=== PATIENT | female | born 1965 | race American Indian/Alaskan Native ===

== ENCOUNTER 2018-02-04 15:05 | Emergency (ER) | payer SELFPAY ==
[2018-02-04 16:39] VITALS: BP 169/91
[2018-02-04] MEDS ORDERED: CLEOCIN PO ONE (17:57)
[2018-02-04] MEDS ORDERED: NORCO 5/325 PO ONE (17:57)
[2018-02-04] MEDS ORDERED: LIDOCAINE VISCOUS 2% MM ONE (18:00)
--- NOTE | 2018-02-04 18:03 | Emergency Department Report ---
ED ENT HPI - General Chief complaint: Dental/Oral Stated complaint: PAIN IN GUMS Time Seen by Provider: 02/04/18 17:50 Source: patient Mode of arrival: Ambulatory Limitations: No Limitations - History of Present Illness Initial comments: Pt reports that she has an infected tooth. Pain x a few days. No fevers or systemic complaints. MD complaint: tooth pain -: Gradual Location: tooth # (18) Severity: moderate Severity scale (0 -10): 7 Quality: stabbing Consistency: constant Improves with: none Worsens with: none Context- Dental: history of dental caries Associated Symptoms: toothache. denies: fever, gum swelling - Related Data Previous Rx's Medication Instructions Recorded Last Taken Type Clindamycin [Clindamycin CAP] 300 mg PO Q6HR #80 capsule 02/04/18 Unknown Rx Ibuprofen [Motrin] 800 mg PO Q8HR PRN #21 tablet 02/04/18 Unknown Rx Lidocaine Viscous 2% 15 ml MM Q6HR PRN #100 ml 02/04/18 Unknown Rx Allergies Allergy/AdvReac Type Severity Reaction Status Date / Time erythromycin base AdvReac Hives Verified 03/16/13 22:23 [Erythromycin Base] Penicillins AdvReac Shortness Verified 03/16/13 22:23 of Breath ED Dental HPI - General Chief complaint: Dental/Oral Stated complaint: PAIN IN GUMS Source: patient Mode of arrival: Ambulatory Limitations: No Limitations - Related Data Previous Rx's Medication Instructions Recorded Last Taken Type Clindamycin [Clindamycin CAP] 300 mg PO Q6HR #80 capsule 02/04/18 Unknown Rx Ibuprofen [Motrin] 800 mg PO Q8HR PRN #21 tablet 02/04/18 Unknown Rx Lidocaine Viscous 2% 15 ml MM Q6HR PRN #100 ml 02/04/18 Unknown Rx Allergies Allergy/AdvReac Type Severity Reaction Status Date / Time erythromycin base AdvReac Hives Verified 03/16/13 22:23 [Erythromycin Base] Penicillins AdvReac Shortness Verified 03/16/13 22:23 of Breath ED Review of Systems ROS: Stated complaint: PAIN IN GUMS Other details as noted in HPI Comment: All other systems reviewed and negative ENT: dental pain ED Past Medical Hx - Past Medical History Hx Hypertension: Yes Additional medical history: acid reflux, hyperlipidema, migraine - Surgical History Additional Surgical History: TUBAL LIGATION - Social History Smoking Status: Current Every Day Smoker Substance Use Type: None - Medications Home Medications: Home Medications Medication Instructions Recorded Confirmed Last Taken Type Clindamycin [Clindamycin CAP] 300 mg PO Q6HR #80 capsule 02/04/18 Unknown Rx Ibuprofen [Motrin] 800 mg PO Q8HR PRN #21 tablet 02/04/18 Unknown Rx Lidocaine Viscous 2% 15 ml MM Q6HR PRN #100 ml 02/04/18 Unknown Rx ED Physical Exam - General Limitations: No Limitations General appearance: alert, in no apparent distress - Head Head exam: Present: atraumatic, normocephalic - Eye Eye exam: Present: normal appearance - ENT ENT exam: Present: normal orophraynx, mucous membranes moist, other (TTP tooth 18; no facial or neck swelling. no trismus. ) - Neck Neck exam: Present: normal inspection - Respiratory Respiratory exam: Present: normal lung sounds bilaterally. Absent: respiratory distress - Cardiovascular Cardiovascular Exam: Present: regular rate, normal rhythm. Absent: systolic murmur, diastolic murmur, rubs, gallop - GI/Abdominal GI/Abdominal exam: Present: soft, normal bowel sounds - Extremities Exam Extremities exam: Present: normal inspection - Back Exam Back exam: Present: normal inspection - Neurological Exam Neurological exam: Present: alert, oriented X3 - Psychiatric Psychiatric exam: Present: normal affect, normal mood - Skin Skin exam: Present: warm, dry, intact, normal color. Absent: rash ED Course Vital Signs 02/04/18 16:35 Temperature 99.1 F Pulse Rate 72 Respiratory 16 Rate Blood Pressure 169/91 O2 Sat by Pulse 99 Oximetry ED Medical Decision Making - Medical Decision Making offered dental block for relief but declines. advised needs to f/u with dentist. given PO [place], cleocin, and viscous lidocaine here. - Differential Diagnosis abscess, dental pain Critical care attestation.: If time is entered above; I have spent that time in minutes in the direct care of this critically ill patient, excluding procedure time. ED Disposition Clinical Impression: Dentalgia Disposition: DC-01 TO HOME OR SELFCARE Is pt being admited?: No Condition: Good Instructions: Dental Caries (ED), Dental Abscess (ED) Additional Instructions: Follow up with dentist. Prescriptions: Clindamycin [Clindamycin CAP] 300 mg PO Q6HR #80 capsule Ibuprofen [Motrin] 800 mg PO Q8HR PRN #21 tablet PRN Reason: pain Lidocaine Viscous 2% 15 ml MM Q6HR PRN #100 ml PRN Reason: Pain , Severe (7-10) Time of Disposition: 18:01
== END 2018-02-04 18:34 | disposition home or self-care (01) ==
LOC: ED 15:05
DX: K08.89 Other specified disorders of teeth and supporting structures (principal); I10 Essential (primary) hypertension; E78.5 Hyperlipidemia, unspecified; G43.909 Migraine, unspecified, not intractable, without status migrainosus; F17.200 Nicotine dependence, unspecified, uncomplicated; Z98.51 Tubal ligation status; Z91.041 Radiographic dye allergy status; Z88.0 Allergy status to penicillin
CPT/HCPCS: 99282

== ENCOUNTER 2018-07-14 12:52 | Emergency (ER) | payer SELFPAY ==
--- NOTE | 2018-07-14 13:00 | Emergency Department Report ---
Blank Doc - Documentation Documentation: This is a 53-year-old female that presents with HTN. Was seen in a dentist and was told to come to the ED for pressure being too high. Denies hx of HTN. Denies any headache or any symptoms. This initial assessment/diagnostic orders/clinical plan/treatment(s) is/are subject to change based on patient's health status, clinical progression and re- assessment by fellow clinical providers in the ED. Further treatment and workup at subsequent clinical providers discretion. Patient/guardians urged not to elope from the ED as their condition may be serious if not clinically assessed and managed. Initial orders include: 1- Patient sent to [facility] for further evaluation and treatment 2- labs
[2018-07-14] MEDS ORDERED: CATAPRES PO ONE (13:15)
[2018-07-14 13:37] LABS: Basophils # (Auto) 0.1 K/mm3 (0.0-0.1); Basophils % (Auto) 0.6 % (0.0-1.8); Eosinophils % (Auto) 0.2 % (0.0-4.3); Hematocrit 37.7 % (30.3-42.9); Hemoglobin 12.4 gm/dl (10.1-14.3); Lymphocytes # (Auto) 1.8 K/mm3 (1.2-5.4); Lymphocytes % (Auto) 20.1 % (13.4-35.0); Mean Corpuscular HGB Conc 33 % (30-34); Mean Corpuscular Volume 81 fl (79-97); Monocytes # (Auto) 0.6 K/mm3 (0.0-0.8); Platelet Count 538 K/mm3 (140-440); Red Blood Count 4.65 M/mm3 (3.65-5.03); Red Cell Distribution Width 18.7 % (13.2-15.2)
[2018-07-14 13:57] LABS: Alanine Aminotransferase 10 units/L (7-56); Albumin 4.4 g/dL (3.9-5); BUN/Creatinine Ratio 8; Blood Urea Nitrogen 5 mg/dL (7-17); Calcium 8.9 mg/dL (8.4-10.2); Hemolysis Index 21
--- NOTE | 2018-07-14 14:28 | Cat Scan Report ---
CT HEAD WITHOUT CONTRAST: HISTORY: Dizziness. TECHNIQUE: Sequential 2.5mm CT images. COMPARISON: none. FINDINGS: Cerebral Parenchyma: Within normal limits. Cerebellum: Within normal limits. Brainstem: Within normal limits. Ventricles: Normal. Sella: Normal. Extra-axial spaces: Normal. Basal Cisterns: Normal. Intracranial Hemorrhage: None. Midline Shift: None. Calvarium: Normal. Sinuses: Normal. Mastoid Air Cells: Normal. Visualized Orbits: Normal. IMPRESSION: Cranial CT scan within normal limits.
[2018-07-14 15:03] VITALS: BP 189/102
--- NOTE | 2018-07-14 15:36 | Emergency Department Report ---
ED General Adult HPI - General Chief complaint: Dizziness Stated complaint: HBP 234/174/SENT BY DENTIST Time Seen by Provider: 07/14/18 12:59 Source: patient Mode of arrival: Ambulatory Limitations: No Limitations - History of Present Illness Initial comments: Patient is 53 years old female with no significant past medical history. Patient presented to the ER after she went to see dentist and found to have high blood pressure. In triage Patient found to have a blood pressure of 233/115. Patient stated that she's been having some headache and dizziness but denied any weakness, numbness or tingling sensation. Patient also denied any chest pain or shortness of breath. No fever or chills. Severity scale (0 -10): 0 - Related Data Previous Rx's Medication Instructions Recorded Last Taken Type Clindamycin [Clindamycin CAP] 300 mg PO Q6HR #80 capsule 02/04/18 Unknown Rx Ibuprofen [Motrin] 800 mg PO Q8HR PRN #21 tablet 02/04/18 Unknown Rx Lidocaine Viscous 2% 15 ml MM Q6HR PRN #100 ml 02/04/18 Unknown Rx amLODIPine [Norvasc] 5 mg PO DAILY #30 tab 07/14/18 Unknown Rx hydroCHLOROthiazide [HCTZ] 25 mg PO QDAY #30 tablet 07/14/18 Unknown Rx Allergies Allergy/AdvReac Type Severity Reaction Status Date / Time erythromycin base AdvReac Hives Verified 03/16/13 22:23 [Erythromycin Base] Penicillins AdvReac Shortness Verified 03/16/13 22:23 of Breath ED Review of Systems ROS: Stated complaint: HBP 234/174/SENT BY DENTIST Other details as noted in HPI Comment: All other systems reviewed and negative Constitutional: denies: chills, fever Respiratory: denies: cough, shortness of breath Cardiovascular: denies: chest pain, palpitations Gastrointestinal: denies: abdominal pain, nausea, vomiting Musculoskeletal: denies: back pain Neurological: denies: headache, weakness ED Past Medical Hx - Past Medical History Previous Medical History?: Yes Hx Hypertension: Yes Additional medical history: acid reflux, hyperlipidema, migraine - Surgical History Past Surgical History?: Yes Additional Surgical History: TUBAL LIGATION - Social History Smoking Status: Current Every Day Smoker Substance Use Type: None - Medications Home Medications: Home Medications Medication Instructions Recorded Confirmed Last Taken Type Clindamycin [Clindamycin CAP] 300 mg PO Q6HR #80 capsule 02/04/18 Unknown Rx Ibuprofen [Motrin] 800 mg PO Q8HR PRN #21 tablet 02/04/18 Unknown Rx Lidocaine Viscous 2% 15 ml MM Q6HR PRN #100 ml 02/04/18 Unknown Rx amLODIPine [Norvasc] 5 mg PO DAILY #30 tab 07/14/18 Unknown Rx hydroCHLOROthiazide [HCTZ] 25 mg PO QDAY #30 tablet 07/14/18 Unknown Rx ED Physical Exam - General Limitations: No Limitations General appearance: alert, in no apparent distress - Head Head exam: Present: atraumatic, normocephalic, normal inspection - Eye Eye exam: Present: normal appearance, PERRL - ENT ENT exam: Present: normal exam, normal orophraynx, mucous membranes moist - Neck Neck exam: Present: normal inspection, full ROM. Absent: tenderness, meningismus, lymphadenopathy, thyromegaly - Respiratory Respiratory exam: Present: normal lung sounds bilaterally. Absent: respiratory distress, wheezes, rales, rhonchi, stridor, chest wall tenderness, accessory muscle use, decreased breath sounds, prolonged expiratory - Cardiovascular Cardiovascular Exam: Present: regular rate, normal rhythm, normal heart sounds - GI/Abdominal GI/Abdominal exam: Present: soft. Absent: distended, tenderness, guarding, rebound, rigid, normal bowel sounds, organomegaly, mass, bruit, pulsatile mass, hernia - Extremities Exam Extremities exam: Present: normal inspection, full ROM, normal capillary refill - Back Exam Back exam: Present: normal inspection, full ROM. Absent: tenderness, CVA tenderness (R), CVA tenderness (L), muscle spasm, paraspinal tenderness, vertebral tenderness - Neurological Exam Neurological exam: Present: alert, oriented X3, CN II-XII intact, normal gait, reflexes normal - Skin Skin exam: Present: warm, intact, normal color ED Course Vital Signs 07/14/18 07/14/18 07/14/18 12:59 13:21 15:02 Temperature 98.9 F Pulse Rate 80 80 94 H Respiratory 16 16 Rate Blood Pressure 233/115 233/115 Blood Pressure 189/102 [Right] O2 Sat by Pulse 100 98 Oximetry ED Medical Decision Making - Lab Data Result diagrams: 07/14/18 13:26 03/18/19 13:26 - Radiology Data Radiology results: report reviewed CT brain is negative for acute finding. - Medical Decision Making Patient is 53 years old female with no significant past medical history. Zac shin presented to the ER after she went to see dentist and found to have high blood pressure. In triage Patient found to have a blood pressure of 233/115. Patient stated that she's been having some headache and dizziness but denied any weakness, numbness or tingling sensation. Patient also denied any chest pain or shortness of breath. No fever or chills. Patient stated that she is feeling much better. Her blood pressure improved significantly. I will discharge patient on Norvasc 5 mg and hydrochlorothiazide. I advised the patient to follow up with her primary care physician in the next 2-3 days and to return to the ER if her symptoms are not improved. Critical care attestation.: If time is entered above; I have spent that time in minutes in the direct care of this critically ill patient, excluding procedure time. ED Disposition Clinical Impression: Dizziness, Malignant hypertension Disposition: DC- TO HOME OR SELFCARE Is pt being admited?: No Condition: Stable Instructions: Hypertension (ED), Dizziness (ED) Prescriptions: hydroCHLOROthiazide [HCTZ] 25 mg PO QDAY #30 tablet amLODIPine [Norvasc] 5 mg PO DAILY #30 tab Referrals: [facility] [Provider Group] - 3-5 Days
== END 2018-07-14 15:46 | disposition home or self-care (01) ==
LOC: ED 12:52
DX: I10 Essential (primary) hypertension (principal); K21.9 Gastro-esophageal reflux disease without esophagitis; E78.5 Hyperlipidemia, unspecified; G43.909 Migraine, unspecified, not intractable, without status migrainosus; F17.200 Nicotine dependence, unspecified, uncomplicated; Z98.51 Tubal ligation status; Z88.0 Allergy status to penicillin; Z88.1 Allergy status to other antibiotic agents
CPT/HCPCS: 36415; 70450; 80053; 85025; 99284

== ENCOUNTER 2021-04-18 12:38 | Emergency (ER) | payer SELFPAY ==
--- NOTE | 2021-04-18 14:58 | XRay Report ---
CHEST 2 VIEWS INDICATION / CLINICAL INFORMATION: cough X 3 DAYS. COMPARISON: 04/10/2010 FINDINGS: SUPPORT DEVICES: None. HEART / MEDIASTINUM: No significant abnormality. LUNGS / PLEURA: No significant pulmonary or pleural abnormality. No pneumothorax. ADDITIONAL FINDINGS: No significant additional findings. IMPRESSION: 1. No acute findings. Signer Name: Santhosh Laguerre MD Signed: 04/18/2021 2:53 PM Workstation Name: [id number]
[2021-04-18] MEDS ORDERED: IPRATROPIUM 0.02% NEBU 2.5 ML IH ONE (15:00)
[2021-04-18] MEDS ORDERED: methylPREDNISolone Sod Succinate 125 MG/2 ML INJ IV ONE (15:00)
[2021-04-18] MEDS ORDERED: ALBUTEROL 2.5 MG/3 ML NEBU IH ONE (15:00)
--- NOTE | 2021-04-18 15:11 | Emergency Department Report ---
<ESTRADA ABDI - Last Filed: 04/18/21 16:58> ED General Adult HPI - General Chief complaint: Dyspnea/Respdistress Stated complaint: CAN'T BREATHE Time Seen by Provider: 04/18/21 14:23 Source: patient Mode of arrival: Ambulatory Limitations: No Limitations - History of Present Illness Initial comments: 55-year-old -[place] female patient presents with complaints of cough or shortness of breath for 2 days. She states she is coughing up clear sputum and denies any hemoptysis or chest pain. Patient denies past medical history and admits to being a chronic smoker. She also denies any loss of taste or smell, abdominal pain, vomiting/diarrhea, recent long travel, leg pain/swelling, history of DVT/PE/cancer, or hormone use. - Related Data Previous Rx's Medication Instructions Recorded Last Taken Type Clindamycin [Clindamycin CAP] 300 mg PO Q6HR #80 capsule 02/04/18 Unknown Rx Ibuprofen [Motrin] 800 mg PO Q8HR PRN #21 tablet 02/04/18 Unknown Rx Lidocaine Viscous 2% 15 ml MM Q6HR PRN #100 ml 02/04/18 Unknown Rx amLODIPine [Norvasc] 5 mg PO DAILY #30 tab 07/14/18 Unknown Rx hydroCHLOROthiazide [HCTZ] 25 mg PO QDAY #30 tablet 07/14/18 Unknown Rx Albuterol Mdi (or & Nicu Only) 2 puff IH QID PRN #8.5 gram 04/18/21 Unknown Rx [ProAir HFA Inhaler] Benzonatate [Tessalon Perles] 100 mg PO Q8HR #30 capsule 04/18/21 Unknown Rx levoFLOXacin [Levaquin TAB] 500 mg PO QDAY #7 tablet 04/18/21 Unknown Rx Allergies Allergy/AdvReac Type Severity Reaction Status Date / Time erythromycin base AdvReac Hives Verified 03/16/13 22:23 [Erythromycin Base] Penicillins AdvReac Shortness Verified 03/16/13 22:23 of Breath ED Review of Systems Constitutional: denies: chills, fever, malaise Respiratory: cough, shortness of breath. denies: orthopnea Cardiovascular: denies: chest pain Gastrointestinal: denies: abdominal pain, nausea, vomiting, diarrhea ED Past Medical Hx - Past Medical History Previous Medical History?: No Hx Hypertension: Yes Additional medical history: acid reflux, hyperlipidema, migraine - Surgical History Past Surgical History?: No Additional Surgical History: TUBAL LIGATION - Social History Smoking Status: Current Every Day Smoker Substance Use Type: None - Medications Home Medications: Home Medications Medication Instructions Recorded Confirmed Last Taken Type Clindamycin [Clindamycin CAP] 300 mg PO Q6HR #80 capsule 02/04/18 Unknown Rx Ibuprofen [Motrin] 800 mg PO Q8HR PRN #21 tablet 02/04/18 Unknown Rx Lidocaine Viscous 2% 15 ml MM Q6HR PRN #100 ml 02/04/18 Unknown Rx amLODIPine [Norvasc] 5 mg PO DAILY #30 tab 07/14/18 Unknown Rx hydroCHLOROthiazide [HCTZ] 25 mg PO QDAY #30 tablet 07/14/18 Unknown Rx Albuterol Mdi (or & Nicu Only) 2 puff IH QID PRN #8.5 gram 04/18/21 Unknown Rx [ProAir HFA Inhaler] Benzonatate [Tessalon Perles] 100 mg PO Q8HR #30 capsule 04/18/21 Unknown Rx levoFLOXacin [Levaquin TAB] 500 mg PO QDAY #7 tablet 04/18/21 Unknown Rx ED Physical Exam - General Limitations: No Limitations General appearance: alert, in no apparent distress, obese - Head Head exam: Present: atraumatic, normocephalic - Eye Eye exam: Present: normal appearance - Respiratory Respiratory exam: Present: wheezes (Diffuse), rhonchi (Diffuse). Absent: respiratory distress, accessory muscle use - Cardiovascular Cardiovascular Exam: Present: normal rhythm, tachycardia (Mild) - Neurological Exam Neurological exam: Present: alert, oriented X3, normal gait - Psychiatric Psychiatric exam: Present: normal affect, normal mood - Skin Skin exam: Present: warm, dry, intact, normal color. Absent: rash ED Medical Decision Making - Lab Data Result diagrams: 04/18/21 15:29 04/18/21 15:29 - Radiology Data Radiology results: report reviewed CHEST 2 VIEWS INDICATION / CLINICAL INFORMATION: cough X 3 DAYS. COMPARISON: 04/10/2010 FINDINGS: SUPPORT DEVICES: None. HEART / MEDIASTINUM: No significant abnormality. LUNGS / PLEURA: No significant pulmonary or pleural abnormality. No pneumothorax. ADDITIONAL FINDINGS: No significant additional findings. IMPRESSION: 1. No acute findings. - Medical Decision Making 35-year-old -[place] male patient presents with complaints of sudden o nset of low back pain starting last night. He denies any injuries and states he noted the pain when he awoke from his sleep. The pain is a 9/10 in severity and describes it as stabbing. Pain occurs with movement and with sitting. Patient states he has had intermittent low back pain, however this is the worst it has ever been. Pain does not radiate anywhere per patient. He also denies any hem atochezia/hematuria, loss of bladder/bowel control, saddle paresthesia/weakness in his legs, history of cancer/unexplained weight loss, IV drug use, or steroid use. He states he has not tried any medications for symptoms Patient denies receiving COVID-19 vaccination Patient dropping to 92% on room air with walking pulse ox after hour-long DuoNeb. Heart rate increased to 140, now 116 while at rest. Discussed patient with Dr. Lozano for possible admission, he reports patient does not meet adm ission criteria at this point. Discussed patient with Dr. Osborn-recommend CTA chest. PERC score = 2. Patient handed over to Dr. Osborn ED Disposition Clinical Impression: Cough, Lower resp. tract infection Disposition: HOME / SELF CARE / HOMELESS Condition: Stable Instructions: Cough, Adult, [id number] Additional Instructions: Return to the emergency department should you develop worsening symptoms, inability to tolerate food or liquids, high fever or any other concerns Prescriptions: levoFLOXacin [Levaquin TAB] 500 mg PO QDAY #7 tablet Albuterol Mdi (or & Nicu Only) [ProAir HFA Inhaler] 2 puff IH QID PRN #8.5 gram PRN Reason: Shortness Of Breath Benzonatate [Tessalon Perles] 100 mg PO Q8HR #30 capsule Referrals: PRIMARY CARE, [Primary Care Provider] - 3-5 Days [facility] [Provider Group] - 3-5 Days <YOANA OSBORN - Last Filed: 04/18/21 18:47> ED Review of Systems ROS: Stated complaint: CAN'T BREATHE Other details as noted in HPI ED Course Vital Signs 04/18/21 04/18/21 04/18/21 14:08 16:26 16:31 Temperature 99.5 F 98.8 F Pulse Rate 100 H 140 H 116 H Respiratory 16 20 Rate Blood Pressure 210/111 189/106 O2 Sat by Pulse 99 92 94 Oximetry 04/18/21 04/18/21 17:58 18:05 Temperature Pulse Rate 116 H Respiratory Rate Blood Pressure 189/106 O2 Sat by Pulse 95 Oximetry ED Medical Decision Making - Lab Data Result diagrams: 04/18/21 15:29 04/18/21 15:29 - Radiology Data Radiology results: report reviewed (CT chest), image reviewed (CT chest) [facility] [address] [place] [address] Cat Scan Report Signed Patient: MANUEL LEBLANC MR#: [id number] : 1965 Acct:[id number] Age/Sex: 55 / F ADM Date: 04/18/21 Loc: ED Attending Dr: Ordering Physician: ESTRADA ABDI Date of Service: 04/18/21 Procedure(s): CT angio chest Accession Number(s): [id number] cc: ESTRADA ABDI CT angio chest INDICATION / CLINICAL INFORMATION: hypoxia, SOB 100 ML OMNI 350 . TECHNIQUE: Axial CT images were obtained through the chest after injection of IV contrast. 3 plane MIP and/or 3D reconstructions were produced. All CT scans at this location are performed using CT dose reduction for ALARA by means of automated exposure control. COMPARISON: None available. FINDINGS: PULMONARY ARTERIES: No pulmonary emboli. HEART: Large quantity of multivessel coronary atherosclerotic calcification. MEDIASTINUM / DIANNA: No significant abnormality. LUNGS: A few centrilobular nodules seen within the posterior segment right upper lobe, image 21 and 22 of series 605. No pleural effusion. No pneumothorax. ADDITIONAL FINDINGS: None. UPPER ABDOMEN: No acute findings. SKELETAL STRUCTURES: No significant osseous abnormality. IMPRESSION: 1. No CT evidence for pulmonary embolism. 2. A few centrilobular nodules seen in the right upper lobe, could be infectious in etiology. Otherwise, no significant abnormality. 3. Large quantity of multivessel coronary atherosclerotic disease. Signer Name: Boby Duggan MD Signed: 04/18/2021 6:35 PM Workstation Name: [id number] Transcribed By: JONI Dictated By: Boby Duggan MD Electronically Authenticated By: Boby Duggan MD Signed Date/Time: 04/18/21 6916 DD/ 31 TD/TT: Print Cancel - Medical Decision Making After treatment patient now has 2-minute walking SPO2 of 95% on room air. Critical care attestation.: If time is entered above; I have spent that time in minutes in the direct care of this critically ill patient, excluding procedure time. ED Disposition Is pt being admited?: No Does the pt Need Aspirin: No Time of Disposition: 18:45
[2021-04-18] MEDS ORDERED: dexAMETHasone 20 MG/5 ML VIAL IM ONE (15:37)
[2021-04-18 15:49] LABS: Basophils # (Auto) 0.1 K/mm3 (0.0-0.1); Basophils % (Auto) 0.9 % (0.0-1.8); Eosinophils % (Auto) 0.9 % (0.0-4.3); Hematocrit 43.2 % (30.3-42.9); Hemoglobin 14.1 gm/dl (10.1-14.3); Lymphocytes # (Auto) 1.7 K/mm3 (1.2-5.4); Lymphocytes % (Auto) 29.5 % (13.4-35.0); Mean Corpuscular HGB Conc 33 % (30-34); Mean Corpuscular Volume 90 fl (79-97); Monocytes # (Auto) 0.8 K/mm3 (0.0-0.8); Monocytes % (Auto) 13.5 % (0.0-7.3); Platelet Count 391 K/mm3 (140-440); Red Blood Count 4.78 M/mm3 (3.65-5.03); Red Cell Distribution Width 14.7 % (13.2-15.2)
[2021-04-18 16:15] LABS: Alanine Aminotransferase 24 units/L (7-56); Albumin 4.7 g/dL (3.9-5); Blood Urea Nitrogen 7 mg/dL (7-17); Calcium 9.3 mg/dL (8.4-10.2); Hemolysis Index 9
[2021-04-18 16:26] LABS: BUN/Creatinine Ratio 12; Bilirubin,Direct < 0.2 mg/dL (0-0.2)
[2021-04-18] MEDS ORDERED: POTASSIUM CHLORIDE ER 20 MEQ TAB PO ONE (16:28)
[2021-04-18 16:33] VITALS: BP 189/106
[2021-04-18] MEDS ORDERED: cloNIDine 0.2 MG TAB PO ONE (17:19)
--- NOTE | 2021-04-18 18:39 | Cat Scan Report ---
CT angio chest INDICATION / CLINICAL INFORMATION: hypoxia, SOB 100 ML OMNI 350 . TECHNIQUE: Axial CT images were obtained through the chest after injection of IV contrast. 3 plane MIP and/or 3D reconstructions were produced. All CT scans at this location are performed using CT dose reduction f or ALARA by means of automated exposure control. COMPARISON: None available. FINDINGS: PULMONARY ARTERIES: No pulmonary emboli. HEART: Large quantity of multivessel coronary atherosclerotic calcification. MEDIASTINUM / DIANNA: No significant abnormality. LUNGS: A few centrilobular nodules seen within the posterior segment right upper lobe, image 21 and 2 2 of series 605. No pleural effusion. No pneumothorax. ADDITIONAL FINDINGS: None. UPPER ABDOMEN: No acute findings. SKELETAL STRUCTURES: No significant osseous abnormality. IMPRESSION: 1. No CT evidence for pulmonary embolism. 2. A few centrilobular nodules seen in the right upper lobe, could be infectious in etiology. Otherwi se, no significant abnormality. 3. Large quantity of multivessel coronary atherosclerotic disease. Signer Name: Boby Duggan MD Signed: 04/18/2021 6:35 PM Workstation Name: [id number]
== END 2021-04-18 19:02 | disposition home or self-care (01) ==
LOC: ED 12:38
DX: J06.9 Acute upper respiratory infection, unspecified (principal); F17.200 Nicotine dependence, unspecified, uncomplicated
CPT/HCPCS: 36415; 71046; 71275; 80048; 80076; 83880; 85025; 94644; 96372; 99284; J1100; Q9967

== ENCOUNTER 2021-08-10 15:34 | Emergency (ER) | payer SELFPAY ==
[2021-08-10 15:52] VITALS: BP 180/98
--- NOTE | 2021-08-10 18:27 | XRay Report ---
CHEST 2 VIEWS INDICATION / CLINICAL INFORMATION: sob. COMPARISON: 2 views of the chest from 04/18/2021. FINDINGS: SUPPORT DEVICES: None. HEART / MEDIASTINUM: No significant abnormality. LUNGS / PLEURA: No significant pulmonary abnormality. No significant pleural effusion. No pneumothora x. ADDITIONAL FINDINGS: No significant additional findings. IMPRESSION: 1. No acute abnormality of the chest. Signer Name: Pola Poole MD Signed: 08/10/2021 6:23 PM Workstation Name: [id number]
[2021-08-10] MEDS ORDERED: ALBUTEROL 2.5 MG/3 ML NEBU IH ONE (20:18)
[2021-08-10] MEDS ORDERED: dexAMETHasone 20 MG/5 ML VIAL IM ONE (20:18)
[2021-08-10] MEDS ORDERED: IBUPROFEN 800 MG TAB PO ONE (20:18)
--- NOTE | 2021-08-10 20:28 | Emergency Department Report ---
ED General Adult HPI - General Chief complaint: Upper Respiratory Infection Stated complaint: FEVER/COUGH/SOB Time Seen by Provider: 08/10/21 20:16 Source: patient Mode of arrival: Ambulatory Limitations: No Limitations - History of Present Illness Initial comments: Patient 56-year-old -[place] female who presents for cough and wheezing shortness of breath x1-1/2 weeks. Patient states cough is productive yellow- green thick, now nocturnal fever. Symptoms have been controlled with NyQuil [id number] and Tylenol. However productive cough has persisted. Patient denies smoking. Patient denies substance. There is history of bronchitis, HTN, and 30 pack year smoker, pt denies asthma, COPD no coronary artery disease, no other complaint. Patient arrived to ED today via POV patient is amatory there is no chest pain, no dizziness, lightheadedness. No nausea or vomiting. Diaphoresis.. - Related Data Previous Rx's Medication Instructions Recorded Last Taken Type Clindamycin [Clindamycin CAP] 300 mg PO Q6HR #80 capsule 02/04/18 Unknown Rx Ibuprofen [Motrin] 800 mg PO Q8HR PRN #21 tablet 02/04/18 Unknown Rx Lidocaine Viscous 2% 15 ml MM Q6HR PRN #100 ml 02/04/18 Unknown Rx amLODIPine [Norvasc] 5 mg PO DAILY #30 tab 07/14/18 Unknown Rx hydroCHLOROthiazide [HCTZ] 25 mg PO QDAY #30 tablet 07/14/18 Unknown Rx Albuterol Mdi (or & Nicu Only) 2 puff IH QID PRN #8.5 gram 04/18/21 Unknown Rx [ProAir HFA Inhaler] Benzonatate [Tessalon Perles] 100 mg PO Q8HR #30 capsule 04/18/21 Unknown Rx levoFLOXacin [Levaquin TAB] 500 mg PO QDAY #7 tablet 04/18/21 Unknown Rx ALBUTEROL NEB's [Proventil 0.083% 2.5 mg IH Q6H PRN #25 vial 08/10/21 Unknown Rx NEBS] Albuterol Mdi (or & Nicu Only) 2 puff IH QID PRN #8.5 gram 08/10/21 Unknown Rx [ProAir HFA Inhaler] dexAMETHasone [Decadron] 4 mg PO BID 5 Days #10 tablet 08/10/21 Unknown Rx guaiFENesin DM [Guaifenesin Dm 10 ml PO Q6H PRN #240 ml 08/10/21 Unknown Rx Syrup] levoFLOXacin [Levaquin TAB] 500 mg PO DAILY 5 Days #5 08/10/21 Unknown Rx Allergies Allergy/AdvReac Type Severity Reaction Status Date / Time erythromycin base AdvReac Hives Verified 03/16/13 22:23 [Erythromycin Base] Penicillins AdvReac Shortness Verified 03/16/13 22:23 of Breath ED Review of Systems ROS: Stated complaint: FEVER/COUGH/SOB Other details as noted in HPI Constitutional: fever Eyes: denies: eye pain, eye discharge, vision change ENT: denies: ear pain, throat pain Respiratory: cough, shortness of breath, wheezing Cardiovascular: denies: chest pain, palpitations Endocrine: no symptoms reported Gastrointestinal: denies: abdominal pain, nausea, vomiting, diarrhea Genitourinary: denies: urgency, dysuria, discharge Musculoskeletal: denies: back pain, joint swelling, arthralgia Skin: denies: rash, lesions Neurological: denies: headache, weakness, numbness, paresthesias, confusion, vertigo Psychiatric: as per HPI Hematological/Lymphatic: denies: easy bleeding, easy bruising ED Past Medical Hx - Past Medical History Previous Medical History?: Yes Hx Hypertension: Yes Additional medical history: acid reflux, hyperlipidema, migraine - Surgical History Past Surgical History?: Yes Additional Surgical History: TUBAL LIGATION - Social History Smoking Status: Current Every Day Smoker Substance Use Type: None - Medications Home Medications: Home Medications Medication Instructions Recorded Confirmed Last Taken Type Clindamycin [Clindamycin CAP] 300 mg PO Q6HR #80 capsule 02/04/18 Unknown Rx Ibuprofen [Motrin] 800 mg PO Q8HR PRN #21 tablet 02/04/18 Unknown Rx Lidocaine Viscous 2% 15 ml MM Q6HR PRN #100 ml 02/04/18 Unknown Rx amLODIPine [Norvasc] 5 mg PO DAILY #30 tab 07/14/18 Unknown Rx hydroCHLOROthiazide [HCTZ] 25 mg PO QDAY #30 tablet 07/14/18 Unknown Rx Albuterol Mdi (or & Nicu Only) 2 puff IH QID PRN #8.5 gram 04/18/21 Unknown Rx [ProAir HFA Inhaler] Benzonatate [Tessalon Perles] 100 mg PO Q8HR #30 capsule 04/18/21 Unknown Rx levoFLOXacin [Levaquin TAB] 500 mg PO QDAY #7 tablet 04/18/21 Unknown Rx ALBUTEROL NEB's [Proventil 0.083% 2.5 mg IH Q6H PRN #25 vial 08/10/21 Unknown Rx NEBS] Albuterol Mdi (or & Nicu Only) 2 puff IH QID PRN #8.5 gram 08/10/21 Unknown Rx [ProAir HFA Inhaler] dexAMETHasone [Decadron] 4 mg PO BID 5 Days #10 tablet 08/10/21 Unknown Rx guaiFENesin DM [Guaifenesin Dm 10 ml PO Q6H PRN #240 ml 08/10/21 Unknown Rx Syrup] levoFLOXacin [Levaquin TAB] 500 mg PO DAILY 5 Days #5 08/10/21 Unknown Rx ED Physical Exam - General Limitations: No Limitations General appearance: alert, in no apparent distress - Head Head exam: Present: normocephalic, normal inspection - Eye Eye exam: Present: normal appearance, PERRL, EOMI. Absent: conjunctival injection, nystagmus Pupils: Present: normal accommodation - ENT ENT exam: Present: normal orophraynx, mucous membranes moist, TM's normal bilaterally - Neck Neck exam: Present: normal inspection, full ROM. Absent: tenderness, lymphadenopathy, thyromegaly - Respiratory Respiratory exam: Present: normal lung sounds bilaterally, wheezes (Mild expiratory wheezes bilateral upper lobes). Absent: respiratory distress, rales, rhonchi, stridor, chest wall tenderness - Cardiovascular Cardiovascular Exam: Present: regular rate, normal rhythm, normal heart sounds. Absent: systolic murmur, diastolic murmur, rubs, gallop - GI/Abdominal GI/Abdominal exam: Present: soft, normal bowel sounds. Absent: distended, tenderness - Rectal Rectal exam: Present: deferred - Extremities Exam Extremities exam: Present: normal inspection, full ROM, normal capillary refill. Absent: tenderness, pedal edema - Back Exam Back exam: Present: normal inspection, full ROM. Absent: CVA tenderness (R), CVA tenderness (L) - Neurological Exam Neurological exam: Present: alert, oriented X3, CN II-XII intact, normal gait - Expanded Neurological Exam Expanded Patient oriented to: Present: person, place, time Speech: Present: fluid speech Best Eye Response (Talya): (4) open spontaneously Best Motor Response ([place]): (6) obeys commands Best Verbal Response ([place]): (5) oriented Talya Total: 15 - Psychiatric Psychiatric exam: Present: normal affect, normal mood - Skin Skin exam: Present: warm, dry, intact, normal color. Absent: rash ED Course Vital Signs 08/10/21 08/10/21 15:41 15:47 Temperature 99.4 F 98.0 F Pulse Rate 103 H 95 H Respiratory 15 18 Rate Blood Pressure 180/98 O2 Sat by Pulse 94 92 Oximetry ED Medical Decision Making - Radiology Data Radiology results: report reviewed, image reviewed CHEST 2 VIEWS INDICATION / CLINICAL INFORMATION: sob. COMPARISON: 2 views of the chest from 04/18/2021. FINDINGS: SUPPORT DEVICES: None. HEART / MEDIASTINUM: No significant abnormality. LUNGS / PLEURA: No significant pulmonary abnormality. No significant pleural effusion. No pneumothorax. ADDITIONAL FINDINGS: No significant additional findings. IMPRESSION: 1. No acute abnormality of the chest. Signer Name: Pola Poole MD Signed: 08/10/2021 6:23 PM Workstation Name: [id number] Transcribed By: [place] Dictated By: Pola Poole MD Electronically Authenticated By: Pola Poole MD Signed Date/Time: 08/10/211822 DD/ 21 TD/TT: - Medical Decision Making Chest x-ray normal no infiltrates no opacities, repeat vital signs are normal. Patient has ambulated from room to the restroom to back to room without increase shortness of breath or wheezing patient requested to be DC'd and go home with medications. Patient has nebulizer at home, given follow-up vital signs and exam this is a reasonable request. Patient will be DC'd to home at this time in stable condition. Patient will be given prescriptions. Patient will follow with primary care doctor in 2 to 3 days. Patient will return to emergency department should symptoms worsen. Patient is currently alert oriented x3 patient is amatory with steady gait there is no chest pain there is no shortness of breath there is no active wheezing. Patient appears well well-hydrated well- nourished and nontoxic. Home via POV and family member. V/S hr: 87, bp: 168/88, Resp: 16, Temp: 98.4 , O2 sat 97% r/a Critical care attestation.: If time is entered above; I have spent that time in minutes in the direct care of this critically ill patient, excluding procedure time. ED Disposition Clinical Impression: Bronchitis URI (upper respiratory infection) Qualifiers: URI type: unspecified URI Qualified Code(s): J06.9 - Acute upper respiratory infection, unspecified Disposition: 01 HOME / SELF CARE / HOMELESS Is pt being admited?: No Does the pt Need Aspirin: No Condition: Stable Instructions: Chronic Bronchitis (ED), Viral Respiratory Infection, How to Use a Metered Dose Inhaler Additional Instructions: Follow-up with your doctor in 2 to 3 days. Take medications as prescribed. Return to emergency department should symptoms worsen. Prescriptions: dexAMETHasone [Decadron] 4 mg PO BID 5 Days #10 tablet guaiFENesin DM [Guaifenesin Dm Syrup] 10 ml PO Q6H PRN #240 ml PRN Reason: Cough levoFLOXacin [Levaquin TAB] 500 mg PO DAILY 5 Days #5 Albuterol Mdi (or & Nicu Only) [ProAir HFA Inhaler] 2 puff IH QID PRN #8.5 gram PRN Reason: Shortness Of Breath ALBUTEROL NEB's [Proventil 0.083% NEBS] 2.5 mg IH Q6H PRN #25 vial PRN Reason: wheezing SOB Referrals: CAROLYN QUISPE MD [Primary Care Provider] - 3-5 Days KARMA CALDERÓN MD [Staff Physician] - 3-5 Days Forms: Work/School Release Form(ED) Time of Disposition: 21:06
== END 2021-08-10 21:27 | disposition home or self-care (01) ==
LOC: ED 15:34
DX: J06.9 Acute upper respiratory infection, unspecified (principal); J40 Bronchitis, not specified as acute or chronic; I10 Essential (primary) hypertension; G43.909 Migraine, unspecified, not intractable, without status migrainosus; F17.200 Nicotine dependence, unspecified, uncomplicated; Z98.51 Tubal ligation status; Z88.1 Allergy status to other antibiotic agents; Z88.0 Allergy status to penicillin; Z79.899 Other long term (current) drug therapy
CPT/HCPCS: 71046; 99283

== ENCOUNTER 2021-08-27 01:08 | Inpatient (IN) | payer SELFPAY ==
[2021-08-27] MEDS ORDERED: IPRATROPIUM 0.02% NEBU 2.5 ML IH ONE ×2 (01:25→02:51)
[2021-08-27] MEDS ORDERED: ASPIRIN 325 MG TAB PO ONE (01:25)
[2021-08-27] MEDS ORDERED: ALBUTEROL 2.5 MG/3 ML NEBU IH ONE ×2 (01:28→02:51)
[2021-08-27] MEDS ORDERED: methylPREDNISolone Sod Succinate 125 MG/2 ML INJ IV ONE (01:54)
[2021-08-27 01:56] LABS: Basophils # (Auto) 0.1 K/mm3 (0.0-0.1); Basophils % (Auto) 0.5 % (0.0-1.8); Eosinophils # (Auto) 0.2 K/mm3 (0.0-0.4); Eosinophils % (Auto) 1.4 % (0.0-4.3); Hemoglobin 12.6 gm/dl (10.1-14.3); Lymphocytes # (Auto) 2.5 K/mm3 (1.2-5.4); Lymphocytes % (Auto) 21.2 % (13.4-35.0); Mean Corpuscular HGB Conc 32 % (30-34); Mean Corpuscular Volume 89 fl (79-97); Monocytes # (Auto) 0.9 K/mm3 (0.0-0.8); Monocytes % (Auto) 7.2 % (0.0-7.3); Platelet Count 473 K/mm3 (140-440); Red Blood Count 4.37 M/mm3 (3.65-5.03); Red Cell Distribution Width 14.4 % (13.2-15.2)
--- NOTE | 2021-08-27 01:58 | Emergency Department Report ---
HPI - General Chief Complaint: Dyspnea/Respdistress Time Seen by Provider: 08/27/21 01:38 - HPI HPI: Room 4 The patient is a 56-year-old female present with a chief complaint of shortness of breath. Patient states she has had a cough productive of yellow sputum for the past 2 to 3 days as well as subjective fever. Patient states she developed shortness of breath today prompting her to come back to the emergency department. Patient denies rhinorrhea nausea vomiting. Patient denies any known sick contacts and states she has not been vaccinated against COVID. Patient was placed immediately on BiPAP upon arrival to an ED room ED Past Medical Hx - Past Medical History Previous Medical History?: Yes Hx Hypertension: Yes Additional medical history: acid reflux, hyperlipidema, migraine, bronchitis - Surgical History Past Surgical History?: Yes Additional Surgical History: TUBAL LIGATION - Family History Family history: no significant - Social History Smoking Status: Current Some Day Smoker Substance Use Type: None (Denies illicit drug use) - Medications Home Medications: Home Medications Medication Instructions Recorded Confirmed Last Taken Type Ibuprofen [Motrin] 800 mg PO Q8HR PRN #21 tablet 02/04/18 08/27/21 Unknown Rx amLODIPine [Norvasc] 5 mg PO DAILY #30 tab 07/14/18 08/27/21 1 Day Ago Rx ~08/26/21 hydroCHLOROthiazide [HCTZ] 25 mg PO QDAY #30 tablet 07/14/18 08/27/21 Unknown Rx Albuterol Mdi (or & Nicu Only) 2 puff IH QID PRN #8.5 gram 04/18/21 08/27/21 1 Day Ago Rx [ProAir HFA Inhaler] ~08/26/21 ALBUTEROL NEB's [Proventil 0.083% 2.5 mg IH Q6H PRN #25 vial 08/10/21 08/27/21 Unknown Rx NEBS] Albuterol Mdi (or & Nicu Only) 2 puff IH QID PRN #8.5 gram 08/10/21 08/27/21 1 Day Ago Rx [ProAir HFA Inhaler] ~08/26/21 ED Review of Systems ROS: Stated complaint: CHEST PAIN/SHAISTA Other details as noted in HPI Constitutional: fever (Subjective) Eyes: denies: eye pain ENT: denies: congestion Respiratory: cough, shortness of breath Cardiovascular: denies: chest pain Endocrine: no symptoms reported Gastrointestinal: denies: nausea, vomiting Genitourinary: denies: dysuria Musculoskeletal: denies: back pain Neurological: denies: headache Physical Exam - Physical Exam Vital Signs: Vital Signs 08/27/21 08/27/21 01:16 01:45 Temperature 98.2 F Pulse Rate 103 H 978 H Respiratory 26 H 34 H Rate Blood Pressure 180/100 213/107 O2 Sat by Pulse 95 100 Oximetry Physical Exam: GENERAL: The patient is well-developed well-nourished female sitting on stret dawit with BiPAP in place showing slightly increased work of breathing. [] HEENT: Normocephalic. Atraumatic. Extraocular motions are intact. Patient has moist mucous membranes. NECK: Supple. Trachea midline CHEST/LUNGS: Tight wheezing diffusely. Increased work of breathing HEART/CARDIOVASCULAR: Regular. There is tachycardia. There is no gallop rub or murmur. ABDOMEN: Abdomen is soft, nontender. Patient has normal bowel sounds. There is no abdominal distention. SKIN: There is no rash. There is no edema. There is no diaphoresis. NEURO: The patient is awake, alert, and oriented. The patient is cooperative. The patient has no focal neurologic deficits. GCS 15 MUSCULOSKELETAL: There is no evidence of acute injury. ED Course Vital Signs 08/27/21 08/27/21 01:16 01:45 Temperature 98.2 F Pulse Rate 103 H 978 H Respiratory 26 H 34 H Rate Blood Pressure 180/100 213/107 O2 Sat by Pulse 95 100 Oximetry ED Medical Decision Making - Lab Data Result diagrams: 08/27/21 01:39 08/27/21 01:39 Laboratory Tests 08/27/21 08/27/21 08/27/21 01:39 01:39 02:42 WBC 12.0 H RBC 4.37 Hgb 12.6 Hct 39.0 MCV 89 MCH 29 MCHC 32 RDW 14.4 Plt Count 473 H Lymph % (Auto) 21.2 [place] % (Auto) 7.2 Eos % (Auto) 1.4 Baso % (Auto) 0.5 Lymph # (Auto) 2.5 [place] # (Auto) 0.9 H Eos # (Auto) 0.2 Baso # (Auto) 0.1 Seg Neutrophils % 69.7 Seg Neutrophils # 8.4 H Sodium 143 Potassium 3.9 Chloride 103.2 Carbon Dioxide 26 Anion Gap 18 BUN 12 Creatinine 0.7 Estimated GFR > 60 BUN/Creatinine Ratio 17 Glucose 105 H Lactic Acid 1.90 Calcium 9.2 Total Bilirubin < 0.20 AST 18 ALT 17 Alkaline Phosphatase 72 Troponin T < 0.010 NT-Pro-B Natriuret Pep Total Protein 7.5 Albumin 4.7 Albumin/Globulin Ratio 1.7 Urine Color Urine Turbidity Urine pH Ur Specific [place] Urine Protein Urine Glucose (UA) Urine Ketones Urine Blood Urine Nitrite Urine Bilirubin Urine Urobilinogen Ur Leukocyte Esterase Urine WBC (Auto) Urine RBC (Auto) U Epithel Cells (Auto) Urine Bacteria (Auto) 08/27/21 08/27/21 08/27/21 02:42 04:38 Unknown WBC RBC Hgb Hct MCV MCH MCHC RDW Plt Count Lymph % (Auto) [place] % (Auto) Eos % (Auto) Baso % (Auto) Lymph # (Auto) [place] # (Auto) Eos # (Auto) Baso # (Auto) Seg Neutrophils % Seg Neutrophils # Sodium Potassium Chloride Carbon Dioxide Anion Gap BUN Creatinine Estimated GFR BUN/Creatinine Ratio Glucose Lactic Acid Calcium Total Bilirubin AST ALT Alkaline Phosphatase Troponin T < 0.010 NT-Pro-B Natriuret Pep 85.98 Total Protein Albumin Albumin/Globulin Ratio Urine Color Yellow Urine Turbidity Clear Urine pH 6.0 Ur Specific [place] 1.012 Urine Protein 100 mg/dl Urine Glucose (UA) Neg Urine Ketones Neg Urine Blood Neg Urine Nitrite Neg Urine Bilirubin Neg Urine Urobilinogen < 2.0 Ur Leukocyte Esterase Mod Urine WBC (Auto) 36.0 H Urine RBC (Auto) 6.0 U Epithel Cells (Auto) 13.0 Urine Bacteria (Auto) 1+ - Radiology Data Radiology results: report reviewed (Chest x-ray), image reviewed (Chest x-ray) interpreted by me: Chest x-ray-no definite focal infiltrates, no pneumothorax [facility] [address] [place] [address] XRay Report Signed Patient: MANUEL LEBLANC MR#: [id number] : 1965 Acct:[id number] Age/Sex: 56 / F ADM Date: 08/27/21 Loc: ED Attending Dr: Ordering Physician: YOANA OSBORN MD Date of Service: 08/27/21 Procedure(s): XR chest 1V ap Accession Number(s): [id number] cc: YOANA OSBORN MD Fluoro Time In Minutes: CHEST 1 VIEW INDICATION / CLINICAL INFORMATION: Cough, shortness of breath. COMPARISON: None available. FINDINGS: Heart size appears within normal limits. Mediastinal contour demonstrates no significant abnormality. Pulmonary vasculature appears within normal limits. Lungs are clear for technique utilized. Bones and soft tissues demonstrate no significant abnormalities. IMPRESSION: 1. No active cardiopulmonary disease. Signer Name: Monika Vee II, MD Signed: 08/27/2021 2:18 AM Workstation Name: [facility])- [id number] Transcribed By: SERENA Dictated By: MONIKA VEE II, MD Electronically Authenticated By: MONIKA VEE II, MD Signed Date/Time: 08/27/21217 DD/ 7 TD/TT: - Differential Diagnosis Pneumonia, reactive airway disease, bronchitis, CHF, COPD Critical care attestation.: If time is entered above; I have spent that time in minutes in the direct care of this critically ill patient, excluding procedure time. ED Disposition Clinical Impression: Shortness of breath, Wheezing, Uncontrolled hypertension, UTI (urinary tract infection) Disposition: ADMITTED INPATIENT Is pt being admited?: Yes Does the pt Need Aspirin: No Condition: Fair Instructions: Hypertension (ED) Time of Disposition: 05:26 (Care transferred to hospitalist (Dr Perdomo))
--- NOTE | 2021-08-27 02:23 | XRay Report ---
CHEST 1 VIEW INDICATION / CLINICAL INFORMATION: Cough, shortness of breath. COMPARISON: None available. FINDINGS: Heart size appears within normal limits. Mediastinal contour demonstrates no significant abnormality. Pulmonary vasculature appears within normal limits. Lungs are clear for technique utilized. Bones an d soft tissues demonstrate no significant abnormalities. IMPRESSION: 1. No active cardiopulmonary disease. Signer Name: Mata Fine II, MD Signed: 08/27/2021 2:18 AM Workstation Name: [id number]
[2021-08-27 02:38] LABS: Alanine Aminotransferase 17 units/L (7-56); Albumin 4.7 g/dL (3.9-5); Blood Urea Nitrogen 12 mg/dL (7-17); Calcium 9.2 mg/dL (8.4-10.2); Hemolysis Index 17
[2021-08-27 02:50] LABS: BUN/Creatinine Ratio 17
[2021-08-27] MEDS ORDERED: cloNIDine 0.2 MG TAB PO ONE (03:13)
[2021-08-27 03:20] LABS: Bacteria,Urine 1+ /HPF (Negative); Bilirubin,Urine NEG (Negative); Blood,Urine NEG (Negative); Color,Urine Yellow (Yellow); Urobilinogen,Urine < 2.0 mg/dL (<2.0)
[2021-08-27] MEDS ORDERED: KETOROLAC 30 MG/1 ML INJ IV ONE (10:16)
--- NOTE | 2021-08-27 10:24 | History and Physical Report ---
History of Present Illness Date of examination: 08/27/21 Date of admission: 08/27/2021 Chief complaint: Severe shortness of breath since last night History of present illness: The patient is a 56-year-old female present with a chief complaint of shortness of breath. Patient states she has had a cough productive of yellow sputum for the past 2 to 3 days as well as subjective fever. Patient states she developed shortness of breath since last night prompting her to come back to the emergency department. Patient denies rhinorrhea nausea vomiting. Patient denies any known sick contacts and states she has not been vaccinated against COVID. Patient has oxygen saturations of 85% on room air at the time of arrival to the emergency room. Patient was placed immediately on BiPAP upon arrival to an ED room - Past Medical History Previous Medical History?: Yes --Hypertension: Yes Additional medical history: acid reflux, hyperlipidema, migraine, bronchitis - Surgical History Past Surgical History?: Yes Additional Surgical History: TUBAL LIGATION - Family History Family history: no significant - Social History Smoking Status: Current Some Day Smoker Substance Use Type: None (Denies illicit drug use) - Medications Home Medications: Home Medications Medication Instructions Recorded Confirmed Last Taken Type Ibuprofen [Motrin] 800 mg PO Q8HR PRN #21 tablet 02/04/18 08/27/21 Unknown Rx amLODIPine [Norvasc] 5 mg PO DAILY #30 tab 07/14/18 08/27/21 1 Day Ago Rx ~08/26/21 hydroCHLOROthiazide [HCTZ] 25 mg PO QDAY #30 tablet 07/14/18 08/27/21 Unknown Rx Albuterol Mdi (or & Nicu Only) 2 puff IH QID PRN #8.5 gram 04/18/21 08/27/21 1 Day Ago Rx [ProAir HFA Inhaler] ~08/26/21 ALBUTEROL NEB's [Proventil 0.083% 2.5 mg IH Q6H PRN #25 vial 08/10/21 08/27/21 Unknown Rx NEBS] Albuterol Mdi (or & Nicu Only) 2 puff IH QID PRN #8.5 gram 08/10/21 08/27/21 1 Day Ago Rx [ProAir HFA Inhaler] ~08/26/21 Review of Systems ROS: Stated complaint: CHEST PAIN/SHAISTA Other details as noted in HPI Constitutional: fever (Subjective) Eyes: denies: eye pain ENT: denies: congestion Respiratory: cough, shortness of breath Cardiovascular: denies: chest pain Endocrine: no symptoms reported Gastrointestinal: denies: nausea, vomiting Genitourinary: denies: dysuria Musculoskeletal: denies: back pain Neurological: denies: headache Medications and Allergies Allergies Allergy/AdvReac Type Severity Reaction Status Date / Time erythromycin base AdvReac Hives Verified 08/27/21 01:24 [Erythromycin Base] Penicillins AdvReac Shortness Verified 08/27/21 01:24 of Breath Home Medications Medication Instructions Recorded Confirmed Last Taken Type Ibuprofen [Motrin] 800 mg PO Q8HR PRN #21 tablet 02/04/18 08/27/21 Unknown Rx amLODIPine [Norvasc] 5 mg PO DAILY #30 tab 07/14/18 08/27/21 1 Day Ago Rx ~08/26/21 hydroCHLOROthiazide [HCTZ] 25 mg PO QDAY #30 tablet 07/14/18 08/27/21 Unknown Rx Albuterol Mdi (or & Nicu Only) 2 puff IH QID PRN #8.5 gram 04/18/21 08/27/21 1 Day Ago Rx [ProAir HFA Inhaler] ~08/26/21 ALBUTEROL NEB's [Proventil 0.083% 2.5 mg IH Q6H PRN #25 vial 08/10/21 08/27/21 Unknown Rx NEBS] Albuterol Mdi (or & Nicu Only) 2 puff IH QID PRN #8.5 gram 08/10/21 08/27/21 1 Day Ago Rx [ProAir HFA Inhaler] ~08/26/21 Exam - Constitutional Vitals: Temp Pulse Resp BP Pulse Ox 98.1 F 81 16 128/74 99 08/27/21 10:12 08/27/21 10:12 08/27/21 10:12 08/27/21 10:12 08/27/21 10:12 General appearance: Present: severe distress, well-nourished - EENT Eyes: Present: PERRL ENT: hearing intact, clear oral mucosa - Neck Neck: Present: supple, normal ROM - Respiratory Respiratory effort: normal Respiratory: bilateral: diminished, rhonchi, wheezing - Cardiovascular Heart rate: 98 Rhythm: regular Heart Sounds: Present: S1 & S2. Absent: rub, click - Extremities Extremities: pulses symmetrical, No edema Peripheral Pulses: within normal limits - Abdominal General gastrointestinal: Present: soft, non-tender, non-distended, normal bowel sounds Female genitourinary: Present: normal - Integumentary Integumentary: Present: clear, warm, dry - Musculoskeletal Musculoskeletal: gait normal, strength equal bilaterally - Psychiatric Psychiatric: appropriate mood/affect, intact judgment & insight - Neurologic Neurologic: CNII-XII intact, moves all extremities HEART Score - HEART Score Troponin: Troponin T < 0.010 ng/mL (0.00-0.029) 08/27/21 07:08 Results - Labs CBC & Chem 7: 08/28/21 05:21 08/27/21 01:39 Labs: Laboratory Last Values WBC 12.0 K/mm3 (4.5-11.0) H 08/27/21 01:39 RBC 4.37 M/mm3 (3.65-5.03) 08/27/21 01:39 Hgb 12.6 gm/dl (10.1-14.3) 08/27/21 01:39 Hct 39.0 % (30.3-42.9) 08/27/21 01:39 MCV 89 fl (79-97) 08/27/21 01:39 MCH 29 pg (28-32) 08/27/21 01:39 MCHC 32 % (30-34) 08/27/21 01:39 RDW 14.4 % (13.2-15.2) 08/27/21 01:39 Plt Count 473 K/mm3 (140-440) H 08/27/21 01:39 Lymph % (Auto) 21.2 % (13.4-35.0) 08/27/21 01:39 [place] % (Auto) 7.2 % (0.0-7.3) 08/27/21 01:39 Eos % (Auto) 1.4 % (0.0-4.3) 08/27/21 01:39 Baso % (Auto) 0.5 % (0.0-1.8) 08/27/21 01:39 Lymph # (Auto) 2.5 K/mm3 (1.2-5.4) 08/27/21 01:39 [place] # (Auto) 0.9 K/mm3 (0.0-0.8) H 08/27/21 01:39 Eos # (Auto) 0.2 K/mm3 (0.0-0.4) 08/27/21 01:39 Baso # (Auto) 0.1 K/mm3 (0.0-0.1) 08/27/21 01:39 Seg Neutrophils % 69.7 % (40.0-70.0) 08/27/21 01:39 Seg Neutrophils # 8.4 K/mm3 (1.8-7.7) H 08/27/21 01:39 Sodium 143 mmol/L (137-145) 08/27/21 01:39 Potassium 3.9 mmol/L (3.6-5.0) 08/27/21 01:39 Chloride 103.2 mmol/L (98-107) 08/27/21 01:39 Carbon Dioxide 26 mmol/L (22-30) 08/27/21 01:39 Anion Gap 18 mmol/L 08/27/21 01:39 BUN 12 mg/dL (7-17) 08/27/21 01:39 Creatinine 0.7 mg/dL (0.6-1.2) 08/27/21 01:39 Estimated GFR > 60 ml/min 08/27/21 01:39 BUN/Creatinine Ratio 17 % 08/27/21 01:39 Glucose 105 mg/dL (65-100) H 08/27/21 01:39 Lactic Acid 1.90 mmol/L (0.7-2.0) 08/27/21 02:42 Calcium 9.2 mg/dL (8.4-10.2) 08/27/21 01:39 Total Bilirubin < 0.20 mg/dL (0.1-1.2) 08/27/21 01:39 AST 18 units/L (5-40) 08/27/21 01:39 ALT 17 units/L (7-56) 08/27/21 01:39 Alkaline Phosphatase 72 units/L (35-129) 08/27/21 01:39 Troponin T < 0.010 ng/mL (0.00-0.029) 08/27/21 07:08 NT-Pro-B Natriuret Pep 85.98 pg/mL (0-900) 08/27/21 02:42 Total Protein 7.5 g/dL (6.3-8.2) 08/27/21 01:39 Albumin 4.7 g/dL (3.9-5) 08/27/21 01:39 Albumin/Globulin Ratio 1.7 % 08/27/21 01:39 Urine Color Yellow (Yellow) 08/27/21 Unknown Urine Turbidity Clear (Clear) 08/27/21 Unknown Urine pH 6.0 (5.0-7.0) 08/27/21 Unknown Ur Specific [place] 1.012 (1.003-1.030) 08/27/21 Unknown Urine Protein 100 mg/dl mg/dL (Negative) 08/27/21 Unknown Urine Glucose (UA) Neg mg/dL (Negative) 08/27/21 Unknown Urine Ketones Neg mg/dL (Negative) 08/27/21 Unknown Urine Blood Neg (Negative) 08/27/21 Unknown Urine Nitrite Neg (Negative) 08/27/21 Unknown Urine Bilirubin Neg (Negative) 08/27/21 Unknown Urine Urobilinogen < 2.0 mg/dL (<2.0) 08/27/21 Unknown Ur Leukocyte Esterase Mod (Negative) 08/27/21 Unknown Urine WBC (Auto) 36.0 /HPF (0.0-6.0) H 08/27/21 Unknown Urine RBC (Auto) 6.0 /HPF (0.0-6.0) 08/27/21 Unknown U Epithel Cells (Auto) 13.0 /HPF (0-13.0) 08/27/21 Unknown Urine Bacteria (Auto) 1+ /HPF (Negative) 08/27/21 Unknown Short CBC 08/28/21 Range/Units 05:21 WBC 14.1 H (4.5-11.0) K/mm3 Hgb 11.7 (10.1-14.3) gm/dl Hct 35.7 (30.3-42.9) % Plt Count 461 H (140-440) K/mm3 Cardiac Enzymes 08/27/21 Range/Units 07:08 Troponin T < 0.010 (0.00-0.029) ng/mL Microbiology: Microbiology 08/27/21 02:42 Peripheral/Venous Blood Culture - Preliminary Culture in Progress 08/27/21 02:42 Peripheral/Venous Blood Culture - Preliminary Culture in Progress - Imaging and Cardiology Imaging and Cardiology: Chest x-ray No acute cardiopulmonary disease Assessment and Plan Advance Directives: Yes (Full code) VTE prophylaxis?: Chemical Plan of care discussed with patient/family: Yes - Patient Problems (1) Acute respiratory failure with hypoxia Current Visit: Yes Status: Acute Plan to address problem: Patient is on BiPAP Intubation if necessary IV steroids, antibiotics and duo nebs [id number] and as needed Pulmonary consult requested (2) COPD with exacerbation Current Visit: Yes Status: Acute Plan to address problem: IV steroids, IV antibiotics and duo nebs [id number] Patient is on BiPAP Patient to be intubated if necessary Pulmonary consult requested (3) Hypertension Current Visit: Yes Status: Chronic Qualifiers: Hypertension type: primary hypertension Qualified Code(s): I10 - Essential (primary) hypertension Plan to address problem: Continue antihypertensives and adjust medications (4) Hyperlipidemia Current Visit: Yes Status: Chronic Qualifiers: Hyperlipidemia type: mixed hyperlipidemia Qualified Code(s): E78.2 - Mixed hyperlipidemia Plan to address problem: Continue statins (5) GERD (gastroesophageal reflux disease) Current Visit: Yes Status: Chronic Qualifiers: Esophagitis presence: without esophagitis Qualified Code(s): K21.9 - Gastro-esophageal reflux disease without esophagitis Plan to address problem: On PPIs (6) DVT prophylaxis Current Visit: Yes Status: Acute Plan to address problem: On anticoagulation GI prophylaxis (7) Advance care planning Current Visit: Yes Status: Acute Plan to address problem: Disease education conducted, care plan discussed, diagnosis discussed, prognosis discussed. Patient is full code. Patient acknowledges understanding and agreement with care plan. +30 minutes.
[2021-08-27] MEDS ORDERED: IPRATROPIUM/ALBUTEROL SULFATE 3 ML AMPUL.NEB IH PRN (10:30)
[2021-08-27] MEDS ORDERED: ACETAMINOPHEN 325 MG TAB PO PRN (11:00)
[2021-08-27] MEDS ORDERED: AZITHROMYCIN/NS 500 MG/250 ML 500 MG/250 ML BAG IV SCH (11:00)
[2021-08-27] MEDS ORDERED: MORPHINE 2 MG/1 ML INJ IV PRN (11:00)
[2021-08-27] MEDS ORDERED: ONDANSETRON 4 MG/2 ML INJ IV PRN (11:00)
[2021-08-27] MEDS: HEPARIN 5,000 UNIT/1 ML VIAL SUB-Q SCH ×2 (13:56→22:35)
[2021-08-27] MEDS: IPRATROPIUM/ALBUTEROL SULFATE 3 ML AMPUL.NEB IH SCH ×3 (14:01→21:28)
[2021-08-27] MEDS: cefTRIAXone/NS 2 GM/100 ML 2 GM/100 ML BAG IV SCH (14:01)
[2021-08-27] MEDS: methylPREDNISolone Sod Succinate 125 MG/2 ML INJ IV SCH ×2 (17:02→22:35)
[2021-08-27] MEDS: SODIUM CHLORIDE 0.9% 1000 ML 1,000 ML IV SCH (17:32)
[2021-08-27] MEDS: oxyCODONE /ACETAMINOPHEN 5-325MG TAB PO PRN (22:45)
[2021-08-28] MEDS: methylPREDNISolone Sod Succinate 125 MG/2 ML INJ IV SCH ×3 (05:06→21:21)
[2021-08-28 06:35] LABS: Hematocrit 35.7 % (30.3-42.9); Hemoglobin 11.7 gm/dl (10.1-14.3); Mean Corpuscular HGB Conc 33 % (30-34); Mean Corpuscular Volume 89 fl (79-97); Platelet Count 461 K/mm3 (140-440); Red Blood Count 4.02 M/mm3 (3.65-5.03); Red Cell Distribution Width 14.6 % (13.2-15.2)
[2021-08-28] MEDS: oxyCODONE /ACETAMINOPHEN 5-325MG TAB PO PRN ×3 (06:44→21:14)
[2021-08-28] MEDS ORDERED: ALBUTEROL 8.5 GM MDI INHALATION IH PRN (06:44)
[2021-08-28 06:54] LABS: Alanine Aminotransferase 16 units/L (7-56); Blood Urea Nitrogen 12 mg/dL (7-17); Calcium 8.9 mg/dL (8.4-10.2); Hemolysis Index 3
[2021-08-28 06:55] LABS: BUN/Creatinine Ratio 20
[2021-08-28] MEDS ORDERED: ALBUTEROL 2.5 MG/3 ML NEBU IH PRN (07:00)
[2021-08-28] MEDS: IPRATROPIUM/ALBUTEROL SULFATE 3 ML AMPUL.NEB IH SCH ×4 (07:39→20:12)
[2021-08-28 08:04] LABS: Basophils % (Manual) 0 % (0.0-1.8); Eosinophils % (Manual) 0 % (0.0-4.3); Platelet Estimate Consistent w Auto; RBC Morphology Normal; Total Cells Counted 100
[2021-08-28] MEDS: cefTRIAXone/NS 2 GM/100 ML 2 GM/100 ML BAG IV SCH (09:12)
[2021-08-28] MEDS: amLODIPine 5 MG TAB PO SCH (09:27)
[2021-08-28] MEDS: AZITHROMYCIN 250 MG TAB PO SCH (09:28)
[2021-08-28] MEDS: hydroCHLOROthiazide 25 MG TAB PO SCH (09:28)
[2021-08-28] MEDS: HEPARIN 5,000 UNIT/1 ML VIAL SUB-Q SCH ×2 (09:28→21:20)
--- NOTE | 2021-08-28 12:03 | Consultation ---
History of Present Illness Consult date: 08/28/21 Requesting physician: KAYDEN ORTEGA Reason for consult: other (Acute Hypoxemic Respiratory Failure) History of present illness: PULMONARY/CCM CONSULT NOTE (Full dictation # [id number]) Please see dictated notes for full details Medications and Allergies Allergies Allergy/AdvReac Type Severity Reaction Status Date / Time erythromycin base AdvReac Hives Verified 08/27/21 01:24 [Erythromycin Base] Penicillins AdvReac Shortness Verified 08/27/21 01:24 of Breath Home Medications Medication Instructions Recorded Confirmed Last Taken Type Ibuprofen [Motrin] 800 mg PO Q8HR PRN #21 tablet 02/04/18 08/27/21 Unknown Rx amLODIPine [Norvasc] 5 mg PO DAILY #30 tab 07/14/18 08/27/21 1 Day Ago Rx ~08/26/21 hydroCHLOROthiazide [HCTZ] 25 mg PO QDAY #30 tablet 07/14/18 08/27/21 Unknown Rx Albuterol Mdi (or & Nicu Only) 2 puff IH QID PRN #8.5 gram 04/18/21 08/27/21 1 Day Ago Rx [ProAir HFA Inhaler] ~08/26/21 ALBUTEROL NEB's [Proventil 0.083% 2.5 mg IH Q6H PRN #25 vial 08/10/21 08/27/21 Unknown Rx NEBS] Albuterol Mdi (or & Nicu Only) 2 puff IH QID PRN #8.5 gram 08/10/21 08/27/21 1 Day Ago Rx [ProAir HFA Inhaler] ~08/26/21 Active Meds: Active Medications Acetaminophen (Acetaminophen 325 Mg Tab) 650 mg PO Q4H PRN PRN Reason: Pain MILD(1-3)/Fever >100.5/MONROY Albuterol (Albuterol 2.5 Mg/3 Ml Nebu) 2 mg IH QID PRN PRN Reason: Shortness Of Breath Albuterol/Ipratropium (Ipratropium/Albuterol Sulfate 3 Ml Ampul.Neb) [address] [facility] Last Admin: 08/28/21 07:39 Dose: 1 ampul Amlodipine Besylate (Amlodipine 5 Mg Tab) [address] [facility] Last Admin: 08/28/21 09:27 Dose: 5 mg Azithromycin (Azithromycin 250 Mg Tab) [address] [facility] Stop: 08/31/21 10:01 Last Admin: 08/28/21 09:28 Dose: 500 mg Heparin Sodium (Porcine) (Heparin 5,000 Unit/1 Ml Vial) 5,000 unit SUB-Q Q12HR [facility] Last Admin: 08/28/21 09:28 Dose: 5,000 unit Hydrochlorothiazide (Hydrochlorothiazide 25 Mg Tab) [address] [facility] Last Admin: 08/28/21 09:28 Dose: 25 mg Sodium Chloride (Nacl 0.9% 1000 Ml) 1,000 mls @ 75 mls/hr IV DIRECT [facility] Last Admin: 08/27/21 17:32 Dose: 75 mls/hr Ceftriaxone Sodium (Rocephin/Ns 2 Gm/100 Ml) 2 gm in 100 mls @ 200 mls/hr IV Q24HR [facility]; Protocol Stop: 08/31/21 10:29 Last Admin: 08/28/21 09:12 Dose: 200 mls/hr Methylprednisolone Sodium Succinate (Methylprednisolone Sod Succinate 125 Mg/2 Ml Inj) [address] [facility] Last Admin: 08/28/21 05:06 Dose: 60 mg Ondansetron HCl (Ondansetron 4 Mg/2 Ml Inj) 4 mg IV Q8H PRN PRN Reason: Nausea And Vomiting Oxycodone/Acetaminophen (Oxycodone /Acetaminophen 5-325mg Tab) 1 tab PO Q6H PRN PRN Reason: Pain, Moderate (4-6) Last Admin: 08/28/21 06:44 Dose: 1 tab Sodium Chloride (Sodium Chloride 0.9% 10 Ml Flush Syringe) [address] [facility] Last Admin: 08/28/21 09:29 Dose: 10 ml Sodium Chloride (Sodium Chloride 0.9% 10 Ml Flush Syringe) 10 ml IV PRN PRN PRN Reason: LINE FLUSH Physical Examination Vital signs: Vital Signs Temp Pulse Resp BP Pulse Ox 98.2 F 103 H 26 H 180/100 95 08/27/21 01:16 08/27/21 01:16 08/27/21 01:16 08/27/21 01:16 08/27/21 01:16 Results - Laboratory Findings CBC and BMP: 08/28/21 05:21 08/28/21 05:21 Abnormal lab findings: Abnormal Labs 08/27/21 08/27/21 08/27/21 01:39 01:39 Unknown WBC 12.0 H Plt Count 473 H [place] # (Auto) 0.9 H Seg Neuts % (Manual) Lymphocytes % (Manual) Seg Neutrophils # 8.4 H Seg Neutrophils # Man Lymphocytes # (Manual) Glucose 105 H Urine WBC (Auto) 36.0 H 08/28/21 08/28/21 05:21 05:21 WBC 14.1 H Plt Count 461 H [place] # (Auto) Seg Neuts % (Manual) 94.0 H Lymphocytes % (Manual) 5.0 L Seg Neutrophils # Seg Neutrophils # Man 13.3 H Lymphocytes # (Manual) 0.7 L Glucose 190 H Urine WBC (Auto)
--- NOTE | 2021-08-28 13:35 | Electrocardiograph Report ---
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
[2021-08-28] MEDS: SODIUM CHLORIDE 0.9% 1000 ML 1,000 ML IV SCH (15:11)
[2021-08-28] MEDS: POLYETHYLENE GLYCOL 3350 17 GM POWDER PO SCH (16:17)
--- NOTE | 2021-08-28 19:39 | Progress Note ---
Assessment and Plan - Patient Problems (1) Acute respiratory failure with hypoxia Status: Acute Plan to address problem: Patient is on BiPAP Intubation if necessary IV steroids, antibiotics and duo nebs [id number] and as needed Pulmonary consult requested (2) COPD with exacerbation Status: Acute Plan to address problem: IV steroids, IV antibiotics and duo nebs [id number] Patient is on BiPAP Patient to be intubated if necessary Pulmonary consult requested (3) Hypertension Status: Chronic Qualifiers: Hypertension type: primary hypertension Qualified Code(s): I10 - Essential (primary) hypertension Plan to address problem: Continue antihypertensives and adjust medications (4) Hyperlipidemia Status: Chronic Qualifiers: Hyperlipidemia type: mixed hyperlipidemia Qualified Code(s): E78.2 - Mixed hyperlipidemia Plan to address problem: Continue statins (5) GERD (gastroesophageal reflux disease) Status: Chronic Qualifiers: Esophagitis presence: without esophagitis Qualified Code(s): K21.9 - Gastro-esophageal reflux disease without esophagitis Plan to address problem: On PPIs (6) DVT prophylaxis Status: Acute Plan to address problem: On anticoagulation GI prophylaxis (7) Advance care planning Status: Acute Plan to address problem: Disease education conducted, care plan discussed, diagnosis discussed, prognosis discussed. Patient is full code. Patient acknowledges understanding and agreement with care plan. +30 minutes. Subjective Date of service: 08/28/21 Principal diagnosis: COPD exacerbation Interval history: The patient is a 56-year-old female present with a chief complaint of shortness of breath. Patient states she has had a cough productive of yellow sputum for the past 2 to 3 days as well as subjective fever. Patient states she developed shortness of breath since last night prompting her to come back to the emergency department. Patient denies rhinorrhea nausea vomiting. Patient denies any known sick contacts and states she has not been vaccinated against COVID. Patient has oxygen saturations of 85% on room air at the time of arrival to the emergency room. Patient was placed immediately on BiPAP upon arrival to an ED room. 08/28/21 Sx better Objective - Constitutional Vitals: Vital Signs - 12hr 08/28/21 08/28/21 08/28/21 07:39 07:42 09:27 Temperature Pulse Rate 94 H Pulse Rate [ 79 Bilateral Throughout] Respiratory Rate Respiratory 17 Rate [Bilateral Throughout] Blood Pressure 143/71 Blood Pressure [Left] O2 Sat by Pulse 99 Oximetry 05/02/22 05/02/22 05/02/22 11:00 13:00 13:52 Temperature 97.0 F L Pulse Rate 83 Pulse Rate [ 85 Bilateral Throughout] Respiratory 18 Rate Respiratory 19 Rate [Bilateral Throughout] Blood Pressure 168/88 Blood Pressure [Left] O2 Sat by Pulse 98 96 Oximetry 08/28/21 16:00 Temperature 98.8 F Pulse Rate 85 Pulse Rate [ Bilateral Throughout] Respiratory 18 Rate Respiratory Rate [Bilateral Throughout] Blood Pressure Blood Pressure 159/67 [Left] O2 Sat by Pulse 98 Oximetry General appearance: Present: no acute distress, well-nourished - EENT Eyes: PERRL, EOM intact ENT: hearing intact, clear oral mucosa Ears: bilateral: normal - Neck Neck: supple, normal ROM - Respiratory Respiratory effort: normal Respiratory: bilateral: CTA, rhonchi, wheezing - Breasts Breasts: normal - Cardiovascular Heart rate: 78 Rhythm: regular Heart Sounds: Present: S1 & S2. Absent: gallop, rub Extremities: pulses intact, No edema, normal color, Full ROM - Gastrointestinal General gastrointestinal: Present: soft, non-tender, non-distended, normal bowel sounds - Genitourinary Female genitourinary: normal - Integumentary Integumentary: clear, warm, dry - Musculoskeletal Musculoskeletal: 1, strength equal bilaterally - Neurologic Neurologic: moves all extremities - Psychiatric Psychiatric: memory intact, appropriate mood/affect, intact judgment & insight - Labs CBC & Chem 7: 08/28/21 05:21 08/28/21 05:21 Labs: Abnormal lab results 08/28/21 08/28/21 08/28/21 Range/Units 05:21 05:21 17:39 WBC 14.1 H (4.5-11.0) K/mm3 Plt Count 461 H (140-440) K/mm3 Seg Neuts % (Manual) 94.0 H (40.0-70.0) % Lymphocytes % (Manual) 5.0 L (13.4-35.0) % Seg Neutrophils # Man 13.3 H (1.8-7.7) K/mm3 Lymphocytes # (Manual) 0.7 L (1.2-5.4) K/mm3 D-Dimer 493.40 H (0-234) ng/mlDDU Glucose 190 H (65-100) mg/dL HEART Score - HEART Score Troponin: Troponin T < 0.010 ng/mL (0.00-0.029) 08/27/21 07:08
[2021-08-28] MEDS: BUDESONIDE 0.5 MG/2 ML NEBU IH SCH (20:12)
[2021-08-28] MEDS: ARFORMOTEROL 15 MCG/2 ML NEBU IH SCH (20:14)
[2021-08-29] MEDS: oxyCODONE /ACETAMINOPHEN 5-325MG TAB PO PRN ×3 (04:54→21:54)
--- NOTE | 2021-08-29 05:41 | Consultation ---
DATE OF CONSULTATION: 08/28/2021 PULMONARY CONSULT NOTE CONSULTING PHYSICIAN: Dr. Henry. REASON FOR CONSULTATION: Acute hypoxemic respiratory failure. CHIEF COMPLAINT AND HISTORY OF PRESENT ILLNESS: The patient is an obese female with past medical history according to her significant only for a diagnosis of gastroesophageal reflux disease, who came into the Emergency Room, complaining of a cough productive of yellow phlegm. It had been going on for about 2-3 days. She has had some subjective fevers. The night before presentation, she developed an acute shortness of breath that did not get any better. She denies any diarrhea. She denies any new-onset rash. Denies any major fevers or diaphoresis. She denies paroxysmal nocturnal dyspnea. She denies any history of asthma as a child. She does admit to tobacco use, but less than 5-pack-year tobacco smoking history. She states she smokes about 2-3 sticks every day of cigarettes. She has never been told she does not breathe in her sleep or she has never been told of snoring. In the Emergency Room, she was found to be hypoxemic at 85% sats on room air and she was placed on bilevel positive airway pressure ventilation therapy with some improvement. We are asked to assist with management. When I stopped by to see her, she was resting in bed. She was coughing during the examination, but it sounded wet, but it was nonproductive. She denied gross or streaky hemoptysis. She denied any new-onset leg pain or swelling, either unilaterally or bilaterally or any suggestion of a deep venous thrombosis. She has had similar episodes in the past, but she seems to be this is the worst episode she has ever had. She denies any contact with anyone with known COVID-19 infection. This really is as much of the history of this presentation as I have. PAST MEDICAL HISTORY: Obesity, hypertension, gastroesophageal reflux disease, hyperlipidemia, migraine and episodes of bronchitis in the past. PAST SURGICAL HISTORY: She has had tubal ligation. MEDICATIONS: She was on at the time I stopped by to see her according to the medication administration record included the following: Tylenol 650 mg p.o. q. 4 hours p.r.n. mild pain or fevers, albuterol 2 mg inhaled q.i.d. p.r.n. shortness of breath, DuoNeb nebulizer treatments nebulized q.i.d., amlodipine 5 mg p.o. daily, azithromycin 500 mg p.o. daily, Rocephin 2 grams IV daily, heparin 5000 units subcutaneous q. 12, hydrochlorothiazide 25 mg p.o. daily, Solu-Medrol 60 mg IV q. 8 hours scheduled, Zofran 4 mg IV q. 8 hours p.r.n. nausea and vomiting, Percocet 5/325 one tablet p.o. q. 6 hours p.r.n. moderate pain, MiraLax 17 grams p.o. daily. ALLERGIES: PENICILLINS AND ERYTHROMYCIN BASE. The nature of this allergy is unknown. DIET: Obese lady, denies acute weight loss or gain in the preceding few weeks to months. FAMILY AND SOCIAL HISTORY: Lives in the community. She smokes every day, but states only about 2-3 sticks of cigarette smoking. Denies alcohol or illicit drug use or abuse. FAMILY HISTORY: Otherwise, noncontributory. REVIEW OF SYSTEMS: No loss of consciousness. No new onset seizures. No new onset focal weakness. Denies gross hematochezia or melena. Denies gross hematuria or dysuria. No hematemesis, no hemoptysis, no palpitations. Denies any new-onset seizures. Denies polydipsia, polyuria heat or cold intolerance. Complete 13-system review of system was obtained. Pertinent positives and/or negatives as in body of history above, otherwise noncontributory. PHYSICAL EXAMINATION: VITAL SIGNS: On presentation, she was afebrile, temperature 98.2 degrees Fahrenheit, pulse of 103, respiratory rate of 26, blood pressure 180/100, O2 sats were 85% on room air. Her T-max has been 99.9 degrees Fahrenheit since she has been in the hospital. GENERAL: Again, obese, middle-aged female. Normocephalic, atraumatic. Talking to me with mildly increased respiratory effort at rest. HEAD, EYES, EARS, NOSE AND THROAT: Anicteric. No conjunctival erythema. Oropharynx was moist. Mallampati #3 oropharynx. No gross jugular venous distention, no thyromegaly. She does have a large neck circumference. Grossly, there were no palpable lymph nodes in the supraclavicular or submandibular lymph node chains. LUNGS: Auscultation of both lung durant significant for diminished bilateral breath sounds, occasional basilar rhonchi, prolonged expiratory phase. No active wheezing at the time I saw her. She was wheezing earlier in the Emergency Room. HEART: Sounds 1 and 2 are heard, regular rate and rhythm at the time of my evaluation. She did have a systolic ejection murmur. ABDOMEN: Soft, full, protuberant. Bowel sounds are positive, nontender, no palpable hepatosplenomegaly. EXTREMITIES: Without overt digital clubbing or cyanosis, no pedal edema. Pedal pulses are 2+ bilaterally. NEUROLOGIC: Pupils are equal, round, about 4 mm, reactive to light. Extraocular muscle movements are intact. She moves all 4 extremities spontaneously. SKIN: Normal turgor without overt cellulitis or rash in the areas I examined. Please see the wound care nurses' notes for full description of her skin. PSYCHIATRIC: Mood was normal. Affect was somewhat anxious. She had intact judgment and insight. LABORATORY DATA: From my review are as follows: White cell count 12,000, hemoglobin 12.6, hematocrit 39.0, platelet count 473. No band forms on the manual differential. Serum sodium was 143, potassium 3.9, chloride 103, bicarbonate 26, BUN 12, creatinine 0.7, glucose is 105. Liver function test within normal limits. Lactic acid level within normal limits. Urinalysis showed moderate leukocyte esterase and 36 white cells per high power field. Two sets of blood cultures, no growth to date. Chest x-ray was done. I have reviewed the chest x-ray, no active pulmonary disease. However, there is evidence of inflation with flattening of the high right hemidiaphragm. There is a borderline to gross cardiomegaly taking the hyperinflation into consideration, slightly increased interstitial markings in a chronic-looking pattern. No gross pneumothorax, no gross bony fracture that I can see. ASSESSMENT: 1. Acute hypoxemic respiratory failure. 2. Suspected acute exacerbation of chronic obstructive pulmonary disease. 3. Borderline cardiomegaly. 4. Obesity. 5. Leukocytosis. 6. Tobacco use disorder. 7. Possible urinary tract infection. 8. Gastroesophageal reflux disease history. 9. Hyperlipidemia. 10. History of migraines. 11. Hypertension. PLAN: I do suspect that we are dealing with occult COPD on this lady or may be the asthma complex. A CT scan that was done last year on 03/31/2021 did not show any overt radiographic emphysematous changes, but then that was then. It well could also be just an acute asthma exacerbation. I do agree with bronchodilator treatments. I will be reducing the frequency of the DuoNebs to b.i.d. and schedule long-acting bronchodilators Brovana with inhaled corticosteroids. I do think that she may benefit ultimately from outpatient Cardiology workup. A 2D echocardiogram will be interesting to see also to evaluate for right-sided pressures and for possible pulmonary hypertension. Otherwise, we will continue systemic steroids. I will taper the Solu-Medrol to 60 mg IV q. 12 and taper further from there shortly. We will continue empiric community-acquired pneumonia therapy for 1 week. She is going to be placed on GI prophylaxis with Pepcid. She is on DVT prophylaxis with heparin. Flu and pneumonia vaccination has been addressed per protocol. Tobacco abstinence has been strongly counseled. Lifestyle changes, weight loss has also been counseled. Thank you very much for the consult. We will follow along and make further recommendations as picture progresses/becomes clearer. She will also benefit from Sleep Clinic evaluation. TID: [id number] RECEIPT: [id number] ARASH/VALERIE/NEEL
[2021-08-29] MEDS: methylPREDNISolone Sod Succinate 125 MG/2 ML INJ IV SCH ×3 (07:47→21:56)
[2021-08-29] MEDS: SODIUM CHLORIDE 0.9% 1000 ML 1,000 ML IV SCH (09:42)
[2021-08-29] MEDS: HEPARIN 5,000 UNIT/1 ML VIAL SUB-Q SCH ×2 (09:44→21:56)
[2021-08-29] MEDS: cefTRIAXone/NS 2 GM/100 ML 2 GM/100 ML BAG IV SCH (09:44)
[2021-08-29] MEDS: amLODIPine 5 MG TAB PO SCH (09:45)
[2021-08-29] MEDS: hydroCHLOROthiazide 25 MG TAB PO SCH (09:45)
[2021-08-29] MEDS: AZITHROMYCIN 250 MG TAB PO SCH (09:45)
[2021-08-29] MEDS: POLYETHYLENE GLYCOL 3350 17 GM POWDER PO SCH (09:45)
--- NOTE | 2021-08-29 10:22 | Electrocardiograph Report ---
[facility] Test Date: 2021-08-28 Test Time: 08:12:16 Pat Name: MANUEL LEBLANC Department: Room: A384 1 Gender: F [employer] Work[employer]: RENETTA : 1965 Requested By: YOANA OSBORN Order Number: [id number] Reading MD: Moises Monroe Measurements Intervals [place] Rate: 73 P: 73 MI: 156 QRS: 54 QRSD: 97 T: 63 QT: 391 QTc: 431 Interpretive Statements Sinus arrhythmia Probable left ventricular hypertrophy Compared to ECG 08/27/2021 01:13:01 Sinus tachycardia no longer present T-wave abnormality no longer present Electronically Signed On 08-29-2021 10:21:30 EDT by Moises Monroe
--- NOTE | 2021-08-29 10:28 | Electrocardiograph Report ---
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
[2021-08-29] MEDS: ARFORMOTEROL 15 MCG/2 ML NEBU IH SCH ×2 (10:40→20:41)
[2021-08-29] MEDS: BUDESONIDE 0.5 MG/2 ML NEBU IH SCH ×2 (10:40→20:41)
[2021-08-29] MEDS: IPRATROPIUM/ALBUTEROL SULFATE 3 ML AMPUL.NEB IH SCH ×2 (10:41→20:41)
--- NOTE | 2021-08-29 12:18 | Progress Note ---
Assessment and Plan Acute hypoxemic respiratory failure Suspected AE-COPD Cardiomegaly Obesity Leukocytosis Tobacco use disorder Possible UTI GERD Hyperlipidemia H/O Migraines Hypertension - follow 2D ECHO - continue care as below otherwise; - supplemental oxygen to keep O2 sats > 90% - Bronchodilators (GEN & LABA) with pulm hygiene per RT - continue systemic steroids with slow taper - continue inhaled corticosteroids - avoid nephrotoxins, renally dose all medications - mobility protocols to prevent pressure ulcers - PT/OT as tolerated - prn analgesia per pain score - Wound care per RN/WCT - continue accuchecks with glycemic control per SSI for target blood glucose < 180 mg/dL - tobacco abstinence strongly counseled at the bedside - home oxygen evaluation at discharge - GI & VTE prophylaxis - Flu & pneumovax per protocol - Pulmonary out patient follow up for PFTs and optimization of respiratory status - continue other care per attending / other consultants ... re-evaluate in am & prn Subjective Date of service: 08/29/21 Principal diagnosis: AHRF; AE-COPD; Cardiomegaly; Obesity; Leukocytosis; Tobacco abuse; UTI Interval history: Patient is seen today for: Acute hypoxemic respiratory failure; Suspected AE- COPD; Cardiomegaly; Obesity; Leukocytosis; Tobacco use disorder; Possible UTI; GERD Seen and examined at bedside; 24hour events reviewed; nursing and respiratory care staff consulted; no adverse overnight events reported to me; resting peacefully in bed; awaiting 2D ECHO; tolerating BIPAP well; no N/V/F/C; + intermittent dry cough Objective Vital Signs - 12hr 08/29/21 08/29/21 08/29/21 01:00 09:45 10:00 Pulse Rate 84 Pulse Rate [ 91 H Bilateral Throughout] Respiratory 17 Rate Respiratory 18 Rate [Bilateral Throughout] Blood Pressure 143/76 O2 Sat by Pulse 96 99 Oximetry Constitutional: no acute distress Eyes: non-icteric ENT: oropharynx moist Neck: supple, no lymphadenopathy, no JVD, other (large circumference) Effort: mildly labored Ascultation: Bilateral: diminished breath sounds, rhonchi (scant), other (prolonged expiratory phase) Percussion: Bilateral: not dull Cardiovascular: regular rate and rhythm Gastrointestinal: normoactive bowel sounds, soft, non-tender, non-distended Integumentary: normal Extremities: no cyanosis, no edema, pulses normal, no ischemia or petechiae Neurologic: normal mental status, non-focal exam, pupils equal and round, CN II- XII normal Psychiatric: mood appropriate, affect normal CBC and BMP: 08/28/21 05:21 08/28/21 05:21 ABG, PT/INR, D-dimer: PT/INR, D-dimer D-Dimer 493.40 ng/mlDDU (0-234) H 08/28/21 17:39 Abnormal lab findings: Abnormal Labs 08/27/21 08/27/21 08/27/21 01:39 01:39 Unknown WBC 12.0 H Plt Count 473 H Lassen # (Auto) 0.9 H Seg Neuts % (Manual) Lymphocytes % (Manual) Seg Neutrophils # 8.4 H Seg Neutrophils # Man Lymphocytes # (Manual) D-Dimer Glucose 105 H Urine WBC (Auto) 36.0 H 08/28/21 08/28/21 08/28/21 05:21 05:21 17:39 WBC 14.1 H Plt Count 461 H Lassen # (Auto) Seg Neuts % (Manual) 94.0 H Lymphocytes % (Manual) 5.0 L Seg Neutrophils # Seg Neutrophils # Man 13.3 H Lymphocytes # (Manual) 0.7 L D-Dimer 493.40 H Glucose 190 H Urine WBC (Auto) Allied health notes reviewed: nursing
[2021-08-29] MEDS ORDERED: MAGNESIUM HYDROXIDE (MOM) ORAL LIQD UDC PO PRN (22:02)
[2021-08-29] MEDS ORDERED: hydrALAZINE 20 MG/1 ML INJ IV PRN (22:12)
[2021-08-30] MEDS: methylPREDNISolone Sod Succinate 125 MG/2 ML INJ IV SCH (06:22)
[2021-08-30] MEDS: oxyCODONE /ACETAMINOPHEN 5-325MG TAB PO PRN (06:30)
--- NOTE | 2021-08-30 07:26 | Progress Note ---
Assessment and Plan - Patient Problems (1) Acute respiratory failure with hypoxia Status: Acute Plan to address problem: on 2 liters (2) COPD with exacerbation Status: Acute Plan to address problem: IV steroids, IV antibiotics and duo nebs [id number] Patient is on BiPAP Patient to be intubated if necessary Pulmonary consult appreciated (3) Hypertension Status: Chronic Qualifiers: Hypertension type: primary hypertension Qualified Code(s): I10 - Essential (primary) hypertension Plan to address problem: Continue antihypertensives and adjust medications (4) Hyperlipidemia Status: Chronic Qualifiers: Hyperlipidemia type: mixed hyperlipidemia Qualified Code(s): E78.2 - Mixed hyperlipidemia Plan to address problem: Continue statins (5) GERD (gastroesophageal reflux disease) Status: Chronic Qualifiers: Esophagitis presence: without esophagitis Qualified Code(s): K21.9 - Gastro-esophageal reflux disease without esophagitis Plan to address problem: On PPIs (6) DVT prophylaxis Status: Acute Plan to address problem: On anticoagulation GI prophylaxis (7) Advance care planning Status: Acute Plan to address problem: Disease education conducted, care plan discussed, diagnosis discussed, prognosis discussed. Patient is full code. Patient acknowledges understanding and agreement with care plan. +30 minutes. (8) Discharge planning issues Status: Acute Plan to address problem: Possible discharge tomorrow after the echocardiogram Subjective Date of service: 08/29/21 Principal diagnosis: AHRF; AE-COPD; Cardiomegaly; Obesity; Leukocytosis; Tobacco abuse; UTI Interval history: The patient is a 56-year-old female present with a chief complaint of shortness of breath. Patient states she has had a cough productive of yellow sputum for the past 2 to 3 days as well as subjective fever. Patient states she developed shortness of breath since last night prompting her to come back to the emergency department. Patient denies rhinorrhea nausea vomiting. Patient denies any known sick contacts and states she has not been vaccinated against COVID. Patient has oxygen saturations of 85% on room air at the time of arrival to the emergency room. Patient was placed immediately on BiPAP upon arrival to an ED room. 08/28/21 Improving 08/29/21 Sx better Echo pending Objective - Constitutional Vitals: Vital Signs - 12hr 08/29/21 08/29/21 08/29/21 20:43 20:47 21:51 Temperature 97.6 F Pulse Rate 88 Pulse Rate [ 88 Bilateral Throughout] Respiratory 16 Rate Respiratory 18 Rate [Bilateral Throughout] Blood Pressure 184/81 O2 Sat by Pulse 97 97 Oximetry 08/29/21 08/29/21 08/30/21 22:41 23:35 01:00 Temperature Pulse Rate 73 Pulse Rate [ Bilateral Throughout] Respiratory 19 18 Rate Respiratory Rate [Bilateral Throughout] Blood Pressure 184/81 O2 Sat by Pulse 96 97 Oximetry 08/30/21 05:18 Temperature 97.9 F Pulse Rate 86 Pulse Rate [ Bilateral Throughout] Respiratory 21 Rate Respiratory Rate [Bilateral Throughout] Blood Pressure 164/96 O2 Sat by Pulse 98 Oximetry General appearance: Present: no acute distress, well-nourished - EENT Eyes: PERRL, EOM intact ENT: hearing intact, clear oral mucosa Ears: bilateral: normal - Neck Neck: supple, normal ROM - Respiratory Respiratory effort: normal Respiratory: bilateral: CTA - Breasts Breasts: normal - Cardiovascular Rhythm: regular Heart Sounds: Present: S1 & S2. Absent: gallop, rub Extremities: pulses intact, No edema, normal color, Full ROM - Gastrointestinal General gastrointestinal: Present: soft, non-tender, non-distended, normal bowel sounds - Genitourinary Female genitourinary: normal - Integumentary Integumentary: clear, warm, dry - Musculoskeletal Musculoskeletal: 1, strength equal bilaterally - Neurologic Neurologic: moves all extremities - Psychiatric Psychiatric: memory intact, appropriate mood/affect, intact judgment & insight - Labs CBC & Chem 7: 08/28/21 05:21 08/28/21 05:21 HEART Score - HEART Score Troponin: Troponin T < 0.010 ng/mL (0.00-0.029) 08/27/21 07:08
[2021-08-30] MEDS: ARFORMOTEROL 15 MCG/2 ML NEBU IH SCH (08:29)
[2021-08-30] MEDS: BUDESONIDE 0.5 MG/2 ML NEBU IH SCH (08:30)
[2021-08-30] MEDS: IPRATROPIUM/ALBUTEROL SULFATE 3 ML AMPUL.NEB IH SCH (08:30)
[2021-08-30] MEDS: POLYETHYLENE GLYCOL 3350 17 GM POWDER PO SCH ×2 (10:15→10:34)
[2021-08-30] MEDS: cefTRIAXone/NS 2 GM/100 ML 2 GM/100 ML BAG IV SCH (10:15)
[2021-08-30] MEDS: HEPARIN 5,000 UNIT/1 ML VIAL SUB-Q SCH (10:16)
[2021-08-30] MEDS: AZITHROMYCIN 250 MG TAB PO SCH (10:16)
[2021-08-30] MEDS: amLODIPine 5 MG TAB PO SCH (10:37)
[2021-08-30] MEDS: hydroCHLOROthiazide 25 MG TAB PO SCH (10:38)
--- NOTE | 2021-08-30 13:39 | Progress Note ---
Assessment and Plan Acute hypoxemic respiratory failure Suspected AE-COPD Cardiomegaly Obesity Leukocytosis Tobacco use disorder Possible UTI GERD Hyperlipidemia H/O Migraines Hypertension - follow 2D ECHO - tapered to oral steroids - tentative discharge planning for 24 hours respiratory-childers - continue care as below otherwise; - supplemental oxygen to keep O2 sats > 90% - Bronchodilators (GEN & LABA) with pulm hygiene per RT - continue systemic steroids with slow taper - continue inhaled corticosteroids - avoid nephrotoxins, renally dose all medications - mobility protocols to prevent pressure ulcers - PT/OT as tolerated - prn analgesia per pain score - Wound care per RN/WCT - continue accuchecks with glycemic control per SSI for target blood glucose < 180 mg/dL - tobacco abstinence strongly counseled at the bedside - home oxygen evaluation at discharge - GI & VTE prophylaxis - Flu & pneumovax per protocol - Pulmonary out patient follow up for PFTs and optimization of respiratory status - continue other care per attending / other consultants ... re-evaluate in am & prn Subjective Date of service: 08/30/21 Principal diagnosis: AHRF; AE-COPD; Cardiomegaly; Obesity; Leukocytosis; Tobacco abuse; UTI Interval history: Patient is seen today for: Acute hypoxemic respiratory failure; Suspected AE- COPD; Cardiomegaly; Obesity; Leukocytosis; Tobacco use disorder; Possible UTI; GERD Seen and examined at bedside; 24hour events reviewed; nursing and respiratory care staff consulted; no adverse overnight events reported to me; resting peacefully in bed; 2D ECHO result pending; looks and feels better Objective Vital Signs - 12hr 08/30/21 08/30/21 08/30/21 05:18 08:00 08:32 Temperature 97.9 F Pulse Rate 86 Pulse Rate [ 84 Bilateral Throughout] Respiratory 21 Rate Respiratory 18 Rate [Bilateral Throughout] Blood Pressure 164/96 O2 Sat by Pulse 98 98 Oximetry 08/30/21 08/30/21 08/30/21 10:37 12:15 13:00 Temperature 97.7 F Pulse Rate 81 82 Pulse Rate [ Bilateral Throughout] Respiratory 18 18 Rate Respiratory Rate [Bilateral Throughout] Blood Pressure 148/81 152/81 O2 Sat by Pulse 95 97 Oximetry Constitutional: no acute distress Eyes: non-icteric ENT: oropharynx moist Neck: supple, no lymphadenopathy, no JVD, other (large circumference) Effort: mildly labored Ascultation: Bilateral: diminished breath sounds, other (prolonged expiratory phase) Percussion: Bilateral: not dull Cardiovascular: regular rate and rhythm Gastrointestinal: normoactive bowel sounds, soft, non-tender, non-distended Integumentary: normal Extremities: no cyanosis, no edema, pulses normal, no ischemia or petechiae Neurologic: normal mental status, non-focal exam, pupils equal and round, CN II-XII normal Psychiatric: mood appropriate, affect normal CBC and BMP: 08/28/21 05:21 08/28/21 05:21 ABG, PT/INR, D-dimer: PT/INR, D-dimer D-Dimer 493.40 ng/mlDDU (0-234) H 08/28/21 17:39 Abnormal lab findings: Abnormal Labs 08/27/21 08/27/21 08/27/21 01:39 01:39 Unknown WBC 12.0 H Plt Count 473 H Stark # (Auto) 0.9 H Seg Neuts % (Manual) Lymphocytes % (Manual) Seg Neutrophils # 8.4 H Seg Neutrophils # Man Lymphocytes # (Manual) D-Dimer Glucose 105 H Urine WBC (Auto) 36.0 H 08/28/21 08/28/21 08/28/21 05:21 05:21 17:39 WBC 14.1 H Plt Count 461 H Stark # (Auto) Seg Neuts % (Manual) 94.0 H Lymphocytes % (Manual) 5.0 L Seg Neutrophils # Seg Neutrophils # Man 13.3 H Lymphocytes # (Manual) 0.7 L D-Dimer 493.40 H Glucose 190 H Urine WBC (Auto) Allied health notes reviewed: nursing
[2021-08-30] MEDS ORDERED: predniSONE 20 MG TAB PO SCH (16:00)
[2021-08-30] MEDS ORDERED: cloNIDine 0.2 MG TAB PO ONE (19:30)
[2021-08-30 20:17] VITALS: BP 161/97
--- NOTE | 2021-09-02 14:47 | Discharge Summary ---
Providers - Providers Date of Admission: 08/27/21 12:55 Date of discharge: 09/02/21 Attending physician: KAYDEN ORTEGA 08/28/21 06:45 Consult to Physician [CONS] Routine Comment: Consulting Provider: JASON SUTTON Physician Instructions: Reason For Exam: Acute respiratory failure with hypoxia Primary care physician: CAROLYN QUISPE Hospitalization Condition: Fair Hospital course: Subjective Date of service: 08/30/21 Principal diagnosis: AHRF; AE-COPD; Cardiomegaly; Obesity; Leukocytosis; Tobacco abuse; UTI Interval history: The patient is a 56-year-old female present with a chief complaint of shortness of breath. Patient states she has had a cough productive of yellow sputum for the past 2 to 3 days as well as subjective fever. Patient states she developed shortness of breath since last night prompting her to come back to the emergency department. Patient denies rhinorrhea nausea vomiting. Patient denies any known sick contacts and states she has not been vaccinated against COVID. Patient has oxygen saturations of 85% on room air at the time of arrival to the emergency room. Patient was placed immediately on BiPAP upon arrival to an ED room. 08/28/21 Improving 08/29/21 Sx better Echo is pending 08/30/2021 Echo is normal Assessment and Plan - Patient Problems (1) Acute respiratory failure with hypoxia Status: Acute Plan to address problem: Improved On room air (2) COPD with exacerbation Status: Acute Plan to address problem: Patient to be discharged on nebulizer machine and nebulizer medications, oral prednisone and oral Levaquin for 5 more days Status: Chronic Qualifiers: (3)Hypertension Hypertension type: primary hypertension Qualified Code(s): I10 - Essential (primary) hypertension Plan to address problem: Continue antihypertensives and adjust medications (4) Hyperlipidemia Status: Chronic Qualifiers: Hyperlipidemia type: mixed hyperlipidemia Qualified Code(s): E78.2 - Mixed hyperlipidemia Plan to address problem: Continue statins (5) GERD (gastroesophageal reflux disease) Status: Chronic Qualifiers: Esophagitis presence: without esophagitis Qualified Code(s): K21.9 - Gastro-esophageal reflux disease without esophagitis Plan to address problem: On PPIs (6) DVT prophylaxis Status: Acute Plan to address problem: On anticoagulation GI prophylaxis (7) Advance care planning Status: Acute Plan to address problem: Disease education conducted, care plan discussed, diagnosis discussed, prognosis discussed. Patient is full code. Patient acknowledges understanding and agreement with care plan. +30 minutes. (8) Discharge planning issues Status: Acute Plan to address problem: Possible discharge tomorrow after the echocardiogram Disposition: 01 HOME / SELF CARE / HOMELESS Final Discharge Diagnosis (Prints w/discharge instructions): Acute respiratory failure with hypoxia. COPD with exacerbation. Hypertension. Hyperlipidemia. GERD Time spent for discharge: 33 minutes - Discharge Diagnoses (1) Acute respiratory failure with hypoxia Status: Acute (2) COPD with exacerbation Status: Acute (3) Hypertension Status: Chronic Qualifiers: Hypertension type: primary hypertension Qualified Code(s): I10 - Essential (primary) hypertension (4) Hyperlipidemia Status: Chronic Qualifiers: Hyperlipidemia type: mixed hyperlipidemia (5) GERD (gastroesophageal reflux disease) Status: Chronic Qualifiers: Esophagitis presence: without esophagitis Qualified Code(s): K21.9 - G rocco-esophageal reflux disease without esophagitis (6) DVT prophylaxis Status: Acute (7) Advance care planning Status: Acute (8) Discharge planning issues Status: Acute Core Measure Documentation - Palliative Care Palliative Care/ Comfort Measures: Not Applicable - Core Measures Any of the following diagnoses?: none Exam - Constitutional Vitals: Temp Pulse Resp BP Pulse Ox 98.8 F 82 18 161/97 95 08/30/21 16:49 08/30/21 19:50 08/30/21 16:49 08/30/21 20:16 08/30/21 16:49 General appearance: Present: no acute distress, well-nourished - EENT Eyes: Present: PERRL ENT: hearing intact, clear oral mucosa - Neck Neck: Present: supple, normal ROM - Respiratory Respiratory effort: normal Respiratory: bilateral: CTA - Cardiovascular Heart rate: 78 Rhythm: regular Heart Sounds: Present: S1 & S2. Absent: rub, click - Extremities Extremities: pulses symmetrical, No edema Peripheral Pulses: within normal limits - Abdominal General gastrointestinal: Present: soft, non-tender, non-distended, normal bowel sounds Female genitourinary: Present: normal - Integumentary Integumentary: Present: clear, warm, dry - Musculoskeletal Musculoskeletal: gait normal, strength equal bilaterally - Psychiatric Psychiatric: appropriate mood/affect, intact judgment & insight - Neurologic Neurologic: CNII-XII intact, moves all extremities Plan Activity: no restrictions Diet: low salt Follow up with: CAROLYN QUISPE MD [Primary Care Provider] - 7 Days Forms: Work/School Release Form Prescriptions: amLODIPine 10 mg PO DAILY #30 tab predniSONE [Deltasone] 20 mg PO QDAY 7 Days #7 tablet Albuterol Mdi (or & Nicu Only) [ProAir HFA Inhaler] 2 puff IH QID PRN #1 gram PRN Reason: Shortness Of Breath Pantoprazole Sodium [Protonix] 40 mg PO QDAY 30 Days #30 ALBUTEROL NEB's [Proventil 0.083% NEBS] 2.5 mg IH Q6H PRN #25 vial PRN Reason: wheezing SOB Montelukast [Singulair] 10 mg PO QPM #30 tablet Other Discharge Orders: Nebulizer (Amb) Location: None Selected
== END 2021-08-30 20:40 | disposition home or self-care (01) | DRG 189 ==
LOC: ED 01:08 → 3A 12:55
PROVIDERS: ADMIT Internal Medicine; ATTEND Internal Medicine
PROC: 5A09457 Assistance with Respiratory Ventilation, 24-96 Consecutive Hours, Continuous Positive Airway Pressure (ICD-10-PCS; principal; 2021-08-27)
DX: J96.01 Acute respiratory failure with hypoxia (principal); J44.1 Chronic obstructive pulmonary disease with (acute) exacerbation; N39.0 Urinary tract infection, site not specified; G43.909 Migraine, unspecified, not intractable, without status migrainosus; K21.9 Gastro-esophageal reflux disease without esophagitis; E78.2 Mixed hyperlipidemia; I10 Essential (primary) hypertension; D72.829 Elevated white blood cell count, unspecified; E66.9 Obesity, unspecified; Z68.31 Body mass index [BMI] 31.0-31.9, adult
CPT/HCPCS: 36415; 71045; 80053; 81001; 82140; 83880; 84484; 85007; 85025; 85379; 87040; 87086; 93005; 93306; 94640; 94644; 94660; 94760; 96365; 96367; 96375; 99285; 99406; G0378; C8929; J0360; J0456; J0696; J1644; J1885; J2930; J7030